=== PATIENT | female | born 1975 | race Caucasian/White ===

== ENCOUNTER 2017-11-21 13:57 | Outpatient (CLI) | payer MEDICARE, MEDICAID ==
[~2017-11-21] VITALS: Ht 157.5 cm; Wt 58.5 kg
[~2017-11-21 13:57] MED LIST changes: -BUPR1FIL3 SL; -CETI10TA17 PO; -CREONC PO; -D-ME118S41 PO; -DICY20TA10 PO; -FLUT16SP22 NS; -FLUT1AER IH; -FURO20TA4 PO; -LISI1TAB8 PO; -ONDA4TAB11 PO; -PANT40TA3 PO; -POLY17PO6 PO; -POTA-51 PO; -PROM25TA14 PO; -RANI150T90 PO; -RT-ALBUINH IH; -VARE0.5T PO; -ZOLP10TA5 PO
[2017-11-21 14:03] VITALS: BP 114/75
[2017-11-21] MEDS ORDERED: FLUT16SP22 NS (15:24)
[2017-11-21] MEDS ORDERED: PROM25TA14 PO (15:24)
[2017-11-21] MEDS ORDERED: PANT40TA3 PO (15:24)
[2017-11-21] MEDS ORDERED: FLUT1AER IH (15:24)
[2017-11-21] MEDS ORDERED: DICY20TA10 PO (15:24)
[2017-11-21] MEDS ORDERED: AMIT50TA3 PO (15:24)
[2017-11-21] MEDS ORDERED: FURO20TA4 PO (15:24)
[2017-11-21] MEDS ORDERED: POTA-51 PO (15:24)
[2017-11-21] MEDS ORDERED: ONDA4TAB11 PO (15:24)
[2017-11-21] MEDS ORDERED: LISI1TAB8 PO (15:24)
[2017-11-21] MEDS ORDERED: POLY17PO6 PO (15:24)
[2017-11-21] MEDS ORDERED: BUPR1FIL3 SL (15:24)
[2017-11-21] MEDS ORDERED: CETI10TA17 PO (15:24)
[2017-11-21] MEDS ORDERED: CREONC PO (15:24)
[2017-11-21] MEDS ORDERED: RT-ALBUINH IH (15:24)
[2017-11-21] MEDS ORDERED: RANI150T90 PO (15:24)
[2017-11-21] MEDS ORDERED: ZOLP10TA5 PO (15:24)
[2017-11-22] MEDS ORDERED: VARE0.5T PO (08:48)
[2017-11-22] MEDS ORDERED: D-ME118S41 PO (08:48)
== END 2017-11-21 14:20 | disposition home or self-care (01) ==
LOC: PREOP 13:57
PROVIDERS: ATTEND Obstetrics & Gynecology
DX: Z01.818 Encounter for other preprocedural examination (principal); Z11.2 Encounter for screening for other bacterial diseases; N80.9 Endometriosis, unspecified; N93.8 Other specified abnormal uterine and vaginal bleeding; R10.2 Pelvic and perineal pain
CPT/HCPCS: 87081

== ENCOUNTER → 2017-11-21 | Outpatient (CLI) | payer MEDICARE, MEDICAID ==
[~2017-11-21] MED LIST: ADDR10T; ALBU17AE23; ALBU17AE3; ALBU17AE3 IH; ALPR.25T; ALPR.5T; AMIT50TA3 PO; BUPR1FIL3 SL; CETI10TA17 PO; CPRH4T; CREON PO; CREONC PO; D-ME118S41 PO; DICY10CA26; DICY20TA10 PO; DICY20TA57; FLUT16SP22 NS; FLUT1AER IH; FNT100TD TD; FNT75TD TD; FURO20TA4 PO; HYDR-34 PO; HYDR-3720; HYDR-707; HYDR1TAB PO; LIPA1CAP2; LISI1TAB8 PO; LORA0.5T PO; METO-354; METO10TA3; MORP100C15 PO; MTC10T; NAPR-247; NF-AMPE5T; OMEP20CA6 PO; ONDA4TAB11 PO; ONDA8TAB6 PO; OXC5T PO; OXYC-272 PO; PANT40TA3 PO; PNCRC PO; POLY17PO6 PO; POTA-51 PO; POTA10CA43 PO; PRM25T; PROM12.53; PROM12.59 PO; PROM25TA14 PO; RANI150T90 PO; REGLAN; RT-ALBUINH IH; TEGA6TAB; TRAZONE; VARE0.5T PO; ZOLP10TA5 PO
--- NOTE | 2017-11-22 14:23 | Diagnostic Imaging Report ---
EXAMINATION: Digital mammogram bilateral screening. INDICATION: Screening. This is the patient's baseline study. At this time, there are no current complaints. The current study was also evaluated with a Computer Aided Detection (CAD) system. FINDINGS: The fibroglandular tissue in both breasts is heterogeneously dense. This does limit the sensitivity of this exam. On the MLO view of the left breast, there is an area of slightly increased density in the superior aspect of the breast. There is no corresponding abnormality seen on the craniocaudad view, and the tomographic images of this area in the MLO projection suggest that the density in question is secondary to fibroglandular tissue. There is no primary or secondary sign of malignancy noted. IMPRESSION: 1. There is no evidence of malignancy. 2. The patient should have her annual bilateral screening mammogram on schedule in October of 2018. ACR BI-RADS Category 1: Negative. Result letter will be mailed to the patient. Note: At least 10% of breast cancer is not imaged by mammography. Dictated on workstation # [id number]
== END ==
LOC: RAD 14:30
PROVIDERS: ATTEND Obstetrics & Gynecology
DX: Z12.31 Encounter for screening mammogram for malignant neoplasm of breast (principal)
CPT/HCPCS: 77067

== ENCOUNTER 2017-11-25 10:53 | Day surgery (SDC) | payer MEDICARE, MEDICAID ==
[~2017-11-25] VITALS: Ht 157.5 cm; Wt 58.5 kg
[2017-11-25] VITALS (7 sets, daily range): BP systolic 105–152; BP diastolic 80–97
[~2017-11-25 10:53] MED LIST changes: +BUPR1FIL3 SL; +CETI10TA17 PO; +CREONC PO; +D-ME118S41 PO; +DICY20TA10 PO; +FLUT16SP22 NS; +FLUT1AER IH; +FURO20TA4 PO; +LISI1TAB8 PO; +ONDA4TAB11 PO; +PANT40TA3 PO; +POLY17PO6 PO; +POTA-51 PO; +PROM25TA14 PO; +RANI150T90 PO; +RT-ALBUINH IH; +VARE0.5T PO; +ZOLP10TA5 PO
--- OUTSIDE RECORDS SUMMARY | 2017-11-25 11:08 | XMS REPORT | Continuity of Care Document ---
Author Author [facility] Organization [facility] Address Unknown Phone Unavailable Allergies Active Description Code Type Severity Reaction Onset Reported/Identified Relationship to Patient Clinical Status Yes NO KNOWN DRUG ALLERGIES NO KNOWN DRUG ALLERG UNKNOWN Yes NO KNOWN DRUG ALLERGIES UNKNOWN NO KNOWN DRUG ALLERG Yes NKANo Known Allergies NKA Miscellaneous Allergy Unknown N/A 11/11/2005 Yes No Known Drug Allergies [id number] Drug Allergy Unknown N/A 03/24/2008 Yes MS Contin Drug Allergy N/A N/A 05/25/2010 Medications Medication Packaging Start Date Stop Date Route Dosage Sig LACTATED RINGERS 1000CC IV BAG INJ 0 ml 09/13/2016 09/20/2016 CONTINUOUSEVERY 0 Hour CEFAZOLIN VIAL INJ 1 GM (ANCEF) GM 09/13/2016 09/13/2016 ONCE&0830 IPRATROPIUM/ALBUTEROL INH SOLN (DUO-NEB INH SOLN) MLS 02/01/2017 02/01/2017 ONCE&1842 POTASSIUM CHLORIDE TAB 10 MEQ (K-DUR) MEQ 02/01/2017 02/01/2017 ONCE&1931 METHYLPREDNISOLONE VIAL INJ 125 MG/2CC (SOLU-MEDROL VIAL) MG 02/01/2017 02/01/2017 ONCE&1937 Problems Date Dx Coded Attending Type Code Diagnosis Diagnosed By 03/19/2008 493.90 ASTHMA UNSPECIFIED 03/22/2008 493.92 ASTHMA (ACUTE ) EXACERBATION 03/24/2009 466.0 ACUTE BRONCHITIS 03/31/2009 786.2 cough 06/27/2009 789.00 abdominal pain 08/03/2009 276.50 VOLUME DEPLETION, UNSPECIFIED 12/27/2009 577.0 ACUTE PANCREATITIS 01/20/2010 577.1 CHRONIC PANCREATITIS 09/13/2016 LEILA CARL 354.0 CARPAL TUNNEL SYNDROME 09/13/2016 LEILA CARL 727.05 OTHER TENOSYNOVITIS OR HAND AND WRIST 09/13/2016 LEILA CARL G56.01 CARPAL TUNNEL SYNDROME, RIGHT UPPER LIMB 09/13/2016 LEILA CARL W M65.9 SYNOVITIS AND TENOSYNOVITIS, UNSPECIFIED 02/01/2017 Sal Krishna 493.92 ASTHMA, UNSPECIFIED WITH (ACUTE) EXACERBATION 02/01/2017 Sal Krishna J45.901 UNSPECIFIED ASTHMA WITH (ACUTE) EXACERBATION 10/31/2017 Bailee Arenas A 620.2 OTHER AND UNSPECIFIED OVARIAN CYST 10/31/2017 Bailee Arenas W 789.03 ABDOMINAL PAIN, RIGHT LOWER QUADRANT 10/31/2017 Bailee Arenas A N83.201 UNSPECIFIED OVARIAN CYST, RIGHT SIDE 10/31/2017 Bailee Arenas R10.31 RIGHT LOWER QUADRANT PAIN 11/21/2017 CAROLE ESCOBAR, EDITH Leggett Ot Z12.31 ENCNTR SCREEN MAMMOGRAM FOR MALIGNANT NE 11/22/2017 EDITH LAM MD, Ot Z12.31 ENCNTR SCREEN MAMMOGRAM FOR MALIGNANT NE 11/22/2017 EDITH LAM MD, Ot Z12.31 ENCNTR SCREEN MAMMOGRAM FOR MALIGNANT NE Procedures There is no data. Results Test Result Range Comprehensive Metabolic Panel - 09/06/16 12:57 Albumin 3.9 g/dL 3.6-5.1 ALP 46 U/L 35-130 ALT 47 U/L 6-45 Anion Gap 14 6-14 AST 40 U/L 2-40 BUN 5 mg/dL 5-25 Calcium 9.0 mg/dL 8.3-10.4 Chloride 106 mmol/L 95-114 CO2 23 mEq/L 22-33 Creat 0.75 mg/dL 0.50-1.50 eGFR 85 mL/min/1.73m2 >59 Globulin 3.0 g/dL 2.3-3.5 Glucose 117 mg/dL 70-110 Osmo 286 280-295 Potassium 3.6 mmol/L 3.5-5.3 Sodium 139 mmol/L 134-148 TBil 0.3 mg/dL 0.2-1.2 TP 6.9 g/dL 6.0-8.3 MRSA Screen - 09/06/16 12:57 FINAL CULTURE RESULTS MRSA Negative Nasal Culture MEDIA PLATED Setup at 13:51 on 09/06/2016 Test-Urine - 09/13/16 07:47 Preg Test-U Negative Negative Comprehensive Metabolic Panel - 02/01/17 18:42 Albumin 4.2 g/dL 3.6-5.1 ALP 76 U/L 35-130 ALT 28 U/L 6-45 Anion Gap 15 6-14 AST 22 U/L 2-40 BUN 9 mg/dL 5-25 Calcium 9.1 mg/dL 8.3-10.4 Chloride 101 mmol/L 95-114 CO2 25 mEq/L 22-33 Creat 1.11 mg/dL 0.50-1.50 eGFR 54 mL/min/1.73m2 >59 Globulin 3.2 g/dL 2.3-3.5 Glucose 96 mg/dL 70-110 Osmo 284 280-295 Potassium 3.1 mmol/L 3.5-5.3 Sodium 138 mmol/L 134-148 TBil 0.5 mg/dL 0.2-1.2 TP 7.4 g/dL 6.0-8.3 Comprehensive Metabolic Panel - 10/31/17 11:01 Albumin 4.0 g/dL 3.6-5.1 ALP 78 U/L 35-130 ALT 32 U/L 6-45 Anion Gap 15 6-14 AST 22 U/L 2-40 BUN 7 mg/dL 5-25 Calcium 9.2 mg/dL 8.3-10.4 Chloride 103 mmol/L 95-114 CO2 21 mEq/L 22-33 Creat 0.68 mg/dL 0.50-1.50 eGFR 95 mL/min/1.73m2 >59 Globulin 3.1 g/dL 2.3-3.5 Glucose 110 mg/dL 70-110 Osmo 280 280-295 Potassium 3.3 mmol/L 3.5-5.3 Sodium 136 mmol/L 134-148 TBil 0.5 mg/dL 0.2-1.2 TP 7.1 g/dL 6.0-8.3 Urinalysis - 10/31/17 11:01 Icotest N/A Negative Urine Volume Urine Volume Sufficient (10mL) Urine Yeast No Yeast present Urine-Appearance Clear Clear Urine-Bacteria Trace Urine-Bilirubin Negative Negative Urine-Blood 1+ Negative Urine-Color Yellow Colorless-Lt. Yellow Urine-Epithelial Cells 0-5/HPF Urine-Glucose Negative Negative Urine-Ketones Negative Negative Urine-Leukocytes Negative Negative Urine-Nitrite Negative Negative Urine-Other Urine Saved if Culture Needed (48hrs from time of collection) Urine-pH 5.0 5-8.5 Urine-Protein Negative Negative Urine-RBC 2-5/HPF Urine-Specific [place] 1.010 1.000-1.030 Urine-WBC Negative Urobilinogen 0.2 E.U./dL 0.2-1.0 Mycoplasma - 10/31/17 11:14 Mycoplasma Negative Negative Methicillin resistant Staphylococcus aureus (MRSA) screening culture - 14:14 Methicillin resistant Staphylococcus aureus (MRSA) screening culture NEG NRG Encounters ACCT No. Visit Date/Time Discharge Status Pt. Type Provider Facility Loc./Unit Complaint [id number] 11/21/2017 14:30:00 11/21/2017 23:59:59 CLS Outpatient EDITH LAM MD [facility] RAD SCREENING [id number] 11/21/2017 13:57:00 11/21/2017 14:20:00 DIS Outpatient EDITH LAM MD [facility] PREOP DUB,CHRONIC PELVIC PAIN [id number] 03/26/2013 10:58:00 03/26/2013 11:32:00 DIS Emergency [id number] 11/25/2017 13:00:00 PEN Preadmit EDITH LAM MD [facility] DUB,CHRONIC PELVIC PAIN, ENDOMETRIOSIS [id number] 10/31/2017 10:56:00 Document Registration [id number] 10/31/2017 10:56:00 10/31/2017 12:50:00 [id number] 02/01/2017 18:01:00 02/01/2017 19:48:00 [id number] 09/13/2016 00:00:00 09/13/2016 09:47:00 DIS Outpatient LEILA CARL [id number] 09/06/2016 12:28:00 09/06/2016 23:59:00 DIS Outpatient LEILA CARL [id number] 09/13/2016 07:36:44 Document Registration [id number] 08/27/2012 07:57:00 Document Registration [id number] 07/03/2017 13:00:00 07/03/2017 23:59:59 CLS Outpatient CARLOS GALVAN APRN [facility]
[2017-11-25] MEDS ORDERED: CATHETER FLUSH 10 ML SYR IV PRN (11:30)
[2017-11-25] MEDS ORDERED: ceFAZolin 1 GM/NS 100 ML IVPB IV ONE ×2 (11:30)
[2017-11-25] MEDS ORDERED: MIDAZOLAM 2 MG/2 ML (VERSED) VIAL IV ONE (11:30)
[2017-11-25] MEDS ORDERED: ROCURONIUM 10 MG/ML 5 ML SYRINGE IV ONE (11:32)
[2017-11-25] MEDS ORDERED: proPOfol 200 MG/20 ML (DIPRIVAN) VIAL IV ONE (11:32)
[2017-11-25] MEDS ORDERED: SEVOFLURANE (ULTANE) 15 ML INHAL SOLN ONE ×4 (11:32→13:40)
[2017-11-25] MEDS ORDERED: LIDOCAINE PF 2% 5 ML (XYLOCAINE) VIAL ONE (11:32)
[2017-11-25] MEDS ORDERED: LACTATED RINGERS 1,000 ML IV ONE (11:32)
[2017-11-25] MEDS ORDERED: DEXAMETHASONE 10 MG/ML (DECADRON) 1 ML VIAL ONE (11:32)
[2017-11-25] MEDS ORDERED: ONDANSETRON 4 MG/2 ML (SDV) Z0FRAN ONE (11:32)
[2017-11-25] MEDS ORDERED: MIDAZOLAM 2 MG/2 ML (VERSED) VIAL ONE (11:32)
[2017-11-25] MEDS ORDERED: fentaNYL INJECTION 100 MCG/2 ML AMP ONE (11:32)
[2017-11-25] MEDS: LACTATED RINGERS 1,000 ML IV PRN ×2 (11:43→14:02)
[2017-11-25] MEDS ORDERED: ceFAZolin INJECTION 1,000 MG in NS (IVPB) 100 ML IV ONE (11:45)
[2017-11-25] MEDS ORDERED: BUP/EPI 0.5% 1:200,000 (SENSORCAINE) 30 ML VIAL ONE (11:46)
--- NOTE | 2017-11-25 12:06 | Progress Note-Pre Operative ---
Pre-Operative Progress Note H&P Reviewed The H&P was reviewed, patient examined and no changes noted. Date Seen by Provider: Nov 25, 2017 Time Seen by Provider: 12:06 Date H&P Reviewed: Nov 25, 2017 Time H&P Reviewed: 12:06 Pre-Operative Diagnosis: CPP/DUB/endometriosis EDITH LAM MD Nov 25, 2017 12:06 pm
--- NOTE | 2017-11-25 12:07 | Progress Note-Post Operative ---
Post-Operative Progess Note Surgeon (s)/Account Manager B2B (s) Surgeon EDITH LAM MD Account Manager B2B: Yen Decker Pre-Operative Diagnosis CPP/DUB/endometriosis Post-Operative Diagnosis Same with pathology pending Procedure & Operative Findings Date of Procedure 11/25/17 Procedure Performed/Findings TL H with BSO , adhesiolysis, destruction of endometriosis, laparoscopic appendectomy Anesthesia Type GETA Estimated Blood Loss Estimated blood loss (mL): Minimal Specimens/Packing Specimens Removed Uterus tubes and ovaries, and appendix Packing: None EDITH LAM MD Nov 25, 2017 12:07
[2017-11-25] MEDS ORDERED: DOCU100C37 PO (12:12)
[2017-11-25] MEDS ORDERED: ESTR1TAB24 PO (12:12)
[2017-11-25] MEDS ORDERED: OXYC-465 PO (12:12)
[2017-11-25] MEDS ORDERED: IBUP-1780 PO (12:12)
--- NOTE | 2017-11-25 12:14 | Discharge Instructions ---
Discharge Instructions Discharge Medications New, Converted or Re-Newed RX: RX on Chart Patient Instructions Patient Instructions: As directed Return to The Hospital For: As directed Activity & Diet Discharge Diet: No Restrictions Activity as Tolerated: No Orders-Post D/C & Referrals Follow Up Appt: Return to clinic on , November 28, 2017 at 930 a.m. for staple removal Call to make follow up appt. for patient in 4 weeks. Activity: Rest for 24 hours, than as tolerated. Wound Care: May remove Band-Aid tomorrow. Replace as desired. Keep incisions clean and dry. Wash daily with soap and water. Please call in RX to patient pharmacy. Diet: As tolerated-Clear Liquids only if nauseated. Tomorrow, may shower or tub bathe as desired. No driving for 24 hours, no alcoholic beverages for 24 hours, and nothing per vagina (no tampons, douching, or intercourse) for 8 weeks. Patient to return to the clinic as soon as possible for: Temperature greater than 101F, Severe Pain, Foul discharge from incision or vagina, Excessive Bleeding (more than a period). EDITH LAM MD Nov 25, 2017 12:14 pm
[2017-11-25] MEDS ORDERED: ESTROGENS CONJ IV 25 MG/5 ML (PREMARIN) VIAL IVP ONE (12:15)
[2017-11-25] MEDS ORDERED: WATER (STERILE) FOR INJ 10 ML BTL INJ ONE (12:15)
[2017-11-25] MEDS ORDERED: ONDANSETRON 4 MG/2 ML (SDV) Z0FRAN IVP PRN ×2 (12:15→14:00)
[2017-11-25] MEDS ORDERED: GLYCOPYRROLATE 0.2 MG/ML (ROBINUL) 2 ML VIAL ONE (13:33)
[2017-11-25] MEDS ORDERED: NEOSTIGMINE 1 MG/ML 5 ML SYRINGE ONE (13:33)
[2017-11-25] MEDS ORDERED: morphine INJ 10 MG/ML 1ML (SYR OR VIAL) ONE (13:43)
[2017-11-25] MEDS: KETOROLAC 30 MG/ML VIAL IVP SCH ×2 (13:58→20:48)
[2017-11-25] MEDS: morphine INJ 10 MG/ML 1ML (SYR OR VIAL) IVP PRN ×2 (13:59→14:05)
[2017-11-25] MEDS ORDERED: PROMETHAZINE INJ 25 MG/ML (PHENERGAN) AMP IVP PRN (14:00)
[2017-11-25] MEDS ORDERED: MEPERIDINE (DEMEROL) INJ 50 MG/ML IVP PRN (14:00)
[2017-11-25] MEDS: HYDROmorphone (DILAUDID) 2 MG/ML VIAL IVP PRN ×2 (14:14→14:24)
[2017-11-25] MEDS: PROMETHAZINE INJ 25 MG/ML (PHENERGAN) AMP IM PRN ×2 (15:11→19:36)
[2017-11-25] MEDS: MEPERIDINE (DEMEROL) INJ 100 MG/ML IM PRN ×2 (15:12→19:36)
[2017-11-25] MEDS: oxyCODONE/APAP 10/325MG (PERCOCET 10) TABLET PO PRN ×2 (17:29→21:51)
[2017-11-25] MEDS: D5 LR IV SOLUTION 1,000 ML IV SCH (17:30)
[2017-11-25] MEDS ORDERED: ZOLPIDEM 5 MG (AMBIEN) TAB PO SCH (21:00)
--- NOTE | 2017-11-25 21:21 | OPERATIVE REPORT ---
DATE OF SERVICE: 11/25/2017 PREOPERATIVE DIAGNOSES: Chronic pelvic pain, dysfunctional bleeding and history of endometriosis. POSTOPERATIVE DIAGNOSES: Chronic pelvic pain, dysfunctional bleeding and history of endometriosis with recurrent endometriosis and with abnormal appendix. OPERATIVE PROCEDURE: Total laparoscopic hysterectomy with bilateral salpingo-oophorectomy, adhesiolysis, destruction of endometriosis implants and laparoscopic appendectomy. OPERATIVE DESCRIPTION: With the patient in the supine position under satisfactory general anesthesia, she was repositioned in dorsal lithotomy position in the [facility] and prepped and draped in the usual fashion for vaginal and abdominal surgery. Carson catheter was placed in urinary bladder. Weighted speculum placed in posterior fornix of vagina, cervix exposed and grasped anteriorly with single tooth tenaculum. Uterus sounded to 11 cm with uterine sound. Cervix was then serially dilated with Jose dilators to accommodate a Sania II manipulator, which was placed using a 6 mm x 8 cm uterine probe and a 25 mm colpotomy ring. Sutures of #1 Vicryl placed at 3 and 9 o'clock position of the cervix to affix the cervix to the manipulator. The patient was brought down into low dorsal lithotomy position. A 12 mm incision was made 3.5 cm superior to the umbilicus, 8 mm incisions were made 8.5 to 9 cm lateral to the umbilicus on each side at the level of the umbilicus. All three incision sites were infiltrated with 0.5% Marcaine with epinephrine prior to incision. A Veress needle was placed through the midline incision, correct placement confirmed with a water drop test. The abdomen was insufflated with 2.4 liters of carbon dioxide. The Veress needle was removed. A 12 mm Optiview laparoscopic port placed and the laparoscope introduced. The abdominal wall was transilluminated and 8 mm ports were placed through the lateral incisions. The patient was brought into Trendelenburg allowing the bowel to spill up out of the pelvis. There were some adhesions on the left pelvic brim that kept the bowel adherent over the IP ligament and the proximal portion of the tube and ovary. At this point, the operative instruments were placed after positioning the manipulator and I retired to the console for the procedure. The tubes and ovaries were examined. The patient had had tubal sterilization remotely that was evidenced by the Falope rings in place. There was endometriosis in both ovarian fossae more so on the left than on the right and minimal in the cul-de-sac, there was none in the anterior cul-de-sac. The ureters were seen to peristalse, both were relatively close to the IP ligament but yielded adequate clearance for safe performance of the procedure. The appendix was identified, it was adherent to the pelvic brim. It had several nodular area consistent with potentially endometriosis, or some degree of inflammation or scar tissue. Decision made to go ahead with appendectomy concurrent with the balance of the procedure. The procedure was initiated by picking up the tube and ovary on the right, placed in the vessel sealer across the IP ligament. That ligament was then clamped, cauterized and divided in stepwise fashion using the vessel sealer over to the round ligament, across the round ligament, across the broad ligaments to the side of the uterus and down the broad ligament to the cardinal ligament and the cardinal ligament was treated in the same manner. The same procedure was performed on the left after taken down the adhesions allowing the sigmoid to fall away from the left IP ligament. This allowed for removal of both tubes and ovaries eventually with the uterus. The anterior lower uterine segment peritoneum was now that exposed and using a monopolar shear, the peritoneum was divided allowing for the bladder to be dissected down off the anterior lower uterine segment off of the cervix. A colpotomy incision was made at the 12 o'clock position over the colpotomy ring. That incision was continued circumferentially until the entire colpotomy ring was exposed allowing the uterus with tubes and ovaries still attached to be extracted through the vagina. The vaginal cuff was closed with two V-Loc barbed sutures starting first on the right angle and including the terminus of the uterine vessels in the first stitch to ensure hemostasis and then the closure was made to almost the midpoint of the vaginal cuff. Same procedure was performed on the left ring and the suture closure including the terminus of the large vessels and the cardinal ligament on the left and then after closing the balance of the vaginal cuff, the peritoneum was brought back down onto the vaginal cuff within the last couple of stitches. The pelvis was irrigated. There were several endometrial implants that had been noted prior. Those were not removed with the uterus and the tubes and ovaries were now touched with electrocautery to destroy them. This was primarily in the ovarian fossae and up on the left pelvic brim. The attention was now turned to the appendix. The appendix was grasped and elevated. The laparoscopic portion using the da Patti equipment was continued at this point to divide the mesoappendix close to the base of the appendix and then divide the mesoappendix completely, and then with the appendix free and ready to be removed, the instrumentation was changed to conventional laparoscopy instruments with 5 mm camera through the left port, a grasper through the right port and a stapler through the midline port. The appendix was grasped, elevated and the Endo DARYA was placed across the base of the appendix and fired. The stump of the appendix was copiously irrigated. The appendix itself was extracted through the umbilical port in an Endobag. The stump of the appendix was treated with several drops of Betadine solution. The pelvis was irrigated final time and examined for hemostasis. With hemostasis complete throughout both ureters seemed to peristalse before, during and after the procedure and again at this point, the procedure was terminated. The operative instruments removed under direct vision as were the ports. The abdomen was evacuated of insufflating gas in the process. The skin incisions were stapled after closing the fascia at the supraumbilical 12 mm incision with [id number] suture of 2-0 Vicryl. The speculum was replaced in the vagina. The vaginal cuff was examined for hemostasis and complete closure, which was satisfactory. Sponge and needle counts were correct at the end of procedure. Estimated blood loss for procedure was minimal. The patient tolerated the procedure well and was uneventfully awakened from general anesthesia and transferred to recovery in stable condition. Job ID: [id number] DocumentID: [id number] Dictated Date: 11/25/2017 13:45:53 Shipping Point Inspector Date: 11/25/2017 21:20:41 Dictated By: EDITH LAM MD [facility]
[2017-11-25] MEDS: LIPASE/AMYLASE/PROTEASE (PANCRELIPASE) 5,000 UNITS CAP PO SCH (21:46)
[2017-11-26 00:05] VITALS: BP 106/77
[2017-11-26] MEDS: MEPERIDINE (DEMEROL) INJ 100 MG/ML IM PRN (00:57)
[2017-11-26] MEDS: PROMETHAZINE INJ 25 MG/ML (PHENERGAN) AMP IM PRN (00:57)
[2017-11-26] MEDS: D5 LR IV SOLUTION 1,000 ML IV SCH (01:36)
[2017-11-26] MEDS: KETOROLAC 30 MG/ML VIAL IVP SCH ×2 (02:45→07:47)
[2017-11-26 03:53] VITALS: BP 108/73
[2017-11-26] MEDS: oxyCODONE/APAP 10/325MG (PERCOCET 10) TABLET PO PRN ×2 (03:56→09:45)
--- NOTE | 2017-11-26 07:02 | Anesthesia-General Post-Op ---
General Patient Condition Mental Status/LOC: Same as Preop Cardiovascular: Satisfactory Nausea/Vomiting: Absent Respiratory: Satisfactory Pain: Controlled Complications: Absent Post Op Complications Complications None Follow Up Care/Instructions Patient Instructions None needed. Anesthesia/Patient Condition Patient Condition Patient is doing well, no complaints, stable vital signs, no apparent adverse anesthesia problems. No complications reported per nursing. ELVA BUTTERFIELD CRNA Nov 26, 2017 07:02
[2017-11-26 08:00] VITALS: BP 108/78
--- NOTE | 2017-11-26 08:11 | Progress Note-Standard ---
Standard Progress Note Progress Notes/Assess & Plan Date Seen by Provider: Nov 26, 2017 Time Seen by Provider: 08:10 Progress/Assessment & Plan This patient is without complaint. She is ambulating, voiding, tolerating oral intake, and has adequate pain control. She feels ready for discharge home. She denies headache, denies shortness of breath, denies nausea vomiting, and denies chest pain. Vital Signs Date Time Temp Pulse Resp B/P (MAP) Pulse Ox O2 Delivery O2 Flow Rate FiO2 11/26/17 03:53 98.7 106 18 108/73 (85) 98 Room Air 11/26/17 00:05 99.3 103 18 106/77 (87) 98 Room Air 11/25/17 20:48 98.5 89 18 105/80 (88) 96 Room Air 11/25/17 17:15 98.0 81 18 142/86 (104) 97 Room Air 11/25/17 16:30 99.4 81 18 134/84 (101) 98 Room Air 11/25/17 16:00 84 18 152/97 (115) 99 Room Air 11/25/17 15:35 82 18 138/89 (105) 99 Room Air 11/25/17 14:55 98.9 73 18 144/92 (109) 100 Room Air 11/25/17 12:14 99.0 99 22 120/88 (99) 98 Room Air I & O 11/26/17 07:00 Intake Total 3700 ml Output Total 810 ml Balance 2890 ml Vital signs are stable. Patient afebrile. Abdomen is benign. The surgical incisions clean dry and intact. Extreme show no clubbing cyanosis. There is no Homans sign. Assessment and plan postoperative day number 1 doing well. Plan is for discharge home with follow-up in clinic Final Diagnosis Pelvic pain/endometriosis EDITH LAM MD Nov 26, 2017 8:11 am
[2017-11-26] MEDS: LIPASE/AMYLASE/PROTEASE (PANCRELIPASE) 5,000 UNITS CAP PO SCH (08:22)
[2017-11-26] MEDS ORDERED: DOCUSATE SODIUM 100 MG (COLACE) CAP PO SCH (09:00)
[2017-11-26] MEDS ORDERED: ESTRADIOL 1 MG TAB (ESTRACE) PO SCH (09:00)
[2017-11-26 11:25] VITALS: BP 108/78
[2017-11-26] MEDS ORDERED: IBUPROFEN 800 MG (MOTRIN) TAB PO SCH (18:00)
== END 2017-11-26 10:25 | disposition home or self-care (01) ==
LOC: SDC 10:53 → WS 14:47 → SDC 11-26 10:25
PROVIDERS: ATTEND Obstetrics & Gynecology
DX: N83.12 Corpus luteum cyst of left ovary (principal); N94.89 Other specified conditions associated with female genital organs and menstrual cycle; N83.8 Other noninflammatory disorders of ovary, fallopian tube and broad ligament; K38.8 Other specified diseases of appendix; I10 Essential (primary) hypertension; J45.909 Unspecified asthma, uncomplicated; F90.9 Attention-deficit hyperactivity disorder, unspecified type; F17.210 Nicotine dependence, cigarettes, uncomplicated; K21.9 Gastro-esophageal reflux disease without esophagitis; Z79.899 Other long term (current) drug therapy
CPT/HCPCS: 84703; 86850; 86900; 86901; 88304; 88307; 94664

== ENCOUNTER → 2018-04-26 | Outpatient (CLI) | payer MEDICARE, MEDICAID ==
[~2018-04-26] MED LIST changes: +DOCU100C37 PO; +ESTR1TAB24 PO; +IBUP-1780 PO; +OXYC-465 PO
== END ==
LOC: LAB 12:03
PROVIDERS: ATTEND Nurse Practitioner Family
DX: M79.1 Myalgia (principal); E53.9 Vitamin B deficiency, unspecified
CPT/HCPCS: 36415; 85652; 86038; 86141; 86200; 86430; 99211

== ENCOUNTER 2020-05-18 15:33 | Emergency (ER) | payer MEDICAID, MEDICARE ==
[~2020-05-18] VITALS: Ht 157.4 cm; Wt 68.1 kg
[~2020-05-18 15:33] MED LIST changes: +LISI1TAB46 PO; -LISI1TAB8 PO; -OXYC-465 PO; +OXYC-556 PO; -PANT40TA3 PO; +PANT40TA52 PO
--- NOTE | 2020-05-18 16:18 | ED Lower Extremity ---
General Stated Complaint: RIGHT HIP PAIN Source: patient Exam Limitations: no limitations History of Present Illness Date Seen by Provider: May 18, 2020 Time Seen by Provider: 16:16 Initial Comments To ER with reports of right hip pain for about a year, became worse in February when she fell. Decided today that she should have some x-rays done of the. On Subox one for chronic pain management. Has not mentioned this hip pain to her primary care provider. Onset: other Severity: moderate Pain/Injury Location: right hip Method of Injury: fell Modifying Factors: Worse With Movement Allergies and Home Medications Allergies Coded Allergies: NKANo Known Allergies (Verified Allergy, Unknown, 11/11/05) Home Medications Albuterol Sulfate 1 Puff Puff, 2 PUFF IH Q4H PRN for WHEEZING, (Reported) 1 PUFF = 90 MCG Amitriptyline HCl 50 Mg Tablet, 75 MG PO HS, (Reported) take 1 1/2 of 50mg tab for 75mg total Buprenorphine HCl/Naloxone HCl 1 Each Film, 1 EACH SL BID, (Reported) Cetirizine HCl 10 Mg Tablet, 10 MG PO DAILY, (Reported) D-Methorphan Hb/P-Epd HCl/Bpm 118 Ml Syrup, 5 ML PO HS, (Reported) Dicyclomine HCl 20 Mg Tablet, 20 MG PO ACHS, (Reported) Docusate Sodium 100 Mg Capsule, 100 MG PO BID Prescribed by: EDITH TADEO on 11/25/171211 Estradiol 1 Mg Tablet, 1 MG PO DAILY Prescribed by: EDITH TADEO on 11/25/17 121 Fluticasone Propionate 16 Gm [place].susp, 1 SPRAY NS DAILY, (Reported) Fluticasone/Vilanterol 1 Each Blst.w.dev, 1 EACH IH BID, (Reported) Furosemide 20 Mg Tablet, 20 MG PO BID, (Reported) Ibuprofen 800 Mg Tablet, 800 MG PO Q6HR Prescribed by: EDITH TADEO on 11/25/17 121 Lipase/Amylase/Protease 1 Ea Cap, 6,000 UNITS PO QID, (Reported) Lisinopril/Hydrochlorothiazide 1 Each Tablet, 1 TAB PO DAILY, (Reported) Ondansetron 4 Mg Tab.rapdis, 4 MG PO BID, (Reported) Oxycodone HCl/Acetaminophen 1 Each Tablet, 1-2 TAB PO Q4HR PRN for PAIN-MODERATE TO SEVERE Prescribed by: EDITH TADEO on 11/25/17 1212 Pantoprazole Sodium 40 Mg Tablet.dr, 40 MG PO DAILY, (Reported) Polyethylene Glycol 3350 17 Gm Powd.pack, 17 GM PO DAILY, (Reported) Potassium Chloride 20 Meq Tablet.er, 20 MEQ PO DAILY, (Reported) Promethazine HCl 25 Mg Tablet, 25 MG PO TID, (Reported) Ranitidine HCl 150 Mg Tablet, 150 MG PO BID, (Reported) Varenicline Tartrate 0.5 Mg Tablet, 0.5 MG PO DAILY, (Reported) Zolpidem Tartrate 10 Mg Tablet, 10 MG PO HS, (Reported) Patient Home Medication List Home Medication List Reviewed: Yes Review of Systems Constitutional: see HPI EENTM: see HPI Respiratory: no symptoms reported Cardiovascular: no symptoms reported Genitourinary: no symptoms reported Skin: no symptoms reported Psychiatric/Neurological: No Symptoms Reported Past Rlwerna-Zthkdg-Lzludz Hx Patient Social History Type Used: Cigarettes Recent Foreign Travel: No Contact w/Someone Who Travel: No Recent Hopitalizations: No Immunizations Up To Date Tetanus Booster (TDap): Unknown Date of Pneumonia Vaccine: Jun 19, 2011 Date of Influenza Vaccine: May 23, 2017 Seasonal Allergies Seasonal Allergies: Yes Past Medical History Tubal Ligation Asthma Hypertension Reproductive Disorders: Yes Female Reproductive Disorders: Endometriosis Sexually Transmitted Disease: No Gastroesophageal Reflux, Chronic Constipation, Pancreatitis, Chronic Diarrhea Arthritis Loss of Vision: Bilateral Hearing Impairment: Denies ADD/ADHD Physical Exam Vital Signs Vital Signs - First Documented 05/18/20 16:02 Temp 36.7 Pulse 98 Resp 18 B/P (MAP) 124/87 (99) Pulse Ox 97 O2 Delivery Room Air Capillary Refill : Height, Weight, BMI Height: 5'2.00" Weight: 129lbs. 0.0oz. 58.078040fz; 23.6 BMI Method:Stated General Appearance: WD/WN, no apparent distress, other (ambulatory without use of assistive device) HEENT: PERRL/EOMI, normal ENT inspection Neck: non-tender, full range of motion Respiratory: no respiratory distress, no accessory muscle use Hips: bilateral hip non-tender, bilateral hip normal inspection, bilateral hip normal range of motion Legs: bilateral leg non-tender, bilateral leg normal inspection, bilateral leg normal range of motion Knees: bilateral knee non-tender, bilateral knee normal inspection, bilateral knee normal range of motion Ankles: bilateral ankle non-tender, bilateral ankle normal inspection, lesley ateral ankle normal range of motion Feet: bilateral foot non-tender, bilateral foot normal inspection, bilateral foot normal range of motion Neurologic/Psychiatric: alert, normal mood/affect, oriented x 3 Skin: normal color, warm/dry Progress/Results/Core Measures Results/Orders My Orders Orders - CONCHA ROACH APRN Hip, Right, 2 Views (05/18/20 16:09) Cefdinir Capsule (Omnicef Capsule) (05/18/20 17:15) Vital Signs/I&O 05/18/20 16:02 Temp 36.7 Pulse 98 Resp 18 B/P (MAP) 124/87 (99) Pulse Ox 97 O2 Delivery Room Air Departure Impression Primary Impression: Right hip pain Disposition: 01 HOME, SELF-CARE Condition: Stable Departure-Patient Inst. Decision time for Depature: 17:08 Referrals: MISA JOHNS DO (PCP/Family) Primary Care Physician Patient Instructions: Hip Pain Add. Discharge Instructions: 1. Return to ER for any concerns 2. Follow-up with your doctor next week 3. Scripts Methylprednisolone (Methylprednisolone Dose Pack) 4 Mg Tab.ds.pk 4 MG PO UD for 6 Days, #21 PKG PER DOSE PACK INSTRUCTIONS Prov: CONCHA ROACH APRN 05/18/20 CONCHA ROACH APRN May 18, 2020 16:18
--- NOTE | 2020-05-18 16:55 | Diagnostic Imaging Report ---
INDICATION: Right hip pain. EXAMINATION: AP and oblique views of the right hip were obtained at 4:27 p.m. FINDINGS: No fracture or acute bony abnormality is seen. There is no significant joint space narrowing or lytic or blastic lesion. IMPRESSION: Negative right hip. Dictated by: Dictated on workstation # [id number]
[2020-05-18] MEDS ORDERED: METH4TAB10 PO (17:09)
[2020-05-18] MEDS ORDERED: CEFDINIR 300 MG (OMNICEF) CAP PO ONE (17:15)
[2020-05-18 17:16] VITALS: BP 124/87
== END 2020-05-18 17:15 | disposition home or self-care (01) ==
LOC: EDUNIT# 15:33 → ER 15:36
DX: M25.551 Pain in right hip (principal); I10 Essential (primary) hypertension; J45.909 Unspecified asthma, uncomplicated; K21.9 Gastro-esophageal reflux disease without esophagitis; K59.09 Other constipation; Z79.52 Long term (current) use of systemic steroids; Z79.51 Long term (current) use of inhaled steroids; W19.XXXA Unspecified fall, initial encounter
CPT/HCPCS: 73502

== ENCOUNTER 2021-10-10 19:25 | Inpatient (IN) | payer MEDICAID ==
[~2021-10-10] VITALS: Ht 157.5 cm; Wt 81.5 kg
[~2021-10-10 19:25] MED LIST changes: +DICY20TA PO; -DICY20TA10 PO; -FLUT16SP22 NS; +FLUT16SP22 NSEACH; +METH4TAB10 PO
[2021-10-10] MEDS ORDERED: LORazepam INJ 2 MG/ML (ATIVAN) VIAL IVP ONE (19:45)
[2021-10-10] MEDS ORDERED: ONDANSETRON 4 MG/2 ML (SDV) Z0FRAN IVP ONE (19:45)
--- NOTE | 2021-10-10 19:47 | ED General ---
General Stated Complaint: SOB,CP,CONGESTION,CHILLS,N/V,FEVER Source of Information: Patient Exam Limitations: No Limitations (CONCHA ROACH APRN) History of Present Illness Date Seen by Provider: Oct 10, 2021 Time Seen by Provider: 19:45 Initial Comments To ER with a 3-week history of productive cough, anxiety, congestion, nausea vomiting chills. She has had both COVID vaccines plus a booster. Severity: Moderate Associated Systoms: Fever/Chills, Nausea/Vomiting (CONCHA ROACH APRN) Allergies and Home Medications Allergies Coded Allergies: NKANo Known Allergies (Verified Allergy, Unknown, 11/11/05) Patient Home Medication List Home Medication List Reviewed: Yes (CONCHA ROACH APRN) Albuterol Sulfate (Ventolin Hfa) 1 Puff Puff, 2 PUFF IH Q4H PRN for SHORTNESS OF BREATH, (Reported) Entered as Reported by: SAULO ESTEVES on 11/21/171523 Last Action: Reviewed Atorvastatin Calcium (Atorvastatin Calcium) 40 Mg Tablet, 40 MG PO HS, (Reported) Entered as Reported by: MALIA PHILIPPE on 10/11/211624 Last Action: Reviewed Budesonide (Budesonide) 0.5 Mg/2 Ml Ampul.neb, 0.5 MG IH BID PRN for SHORTNESS OF BREATH, (Reported) Entered as Reported by: MALIA PHILIPPE on 10/11/211609 Last Action: Reviewed Buprenorphine HCl/Naloxone HCl (Suboxone 8 mg-2 mg Sl Film) 1 Each Film, 1 EACH SL BID, (Reported) Entered as Reported by: MALIA PHILIPPE on 10/11/211609 Last Action: Reviewed Celecoxib (Celebrex) 200 Mg Capsule, 200 MG PO BID, (Reported) Entered as Reported by: MALIA PHILIPPE on 10/11/211609 Last Action: Reviewed Cetirizine HCl (Cetirizine HCl) 10 Mg Tablet, 10 MG PO DAILY PRN for ALLERGY SYMPTOMS, (Reported) Entered as Reported by: SAULO ESTEVES on 11/21/171523 Last Action: Reviewed Cholecalciferol (Vitamin D3) (Vitamin D3) 50 Mcg Capsule, 50 MCG PO DAILY, (Reported) Entered as Reported by: MALIA PHILIPPE on 10/11/211609 Last Action: Reviewed Dicyclomine HCl (Dicyclomine HCl) 20 Mg Tablet, 20 MG PO ACHS, (Reported) Entered as Reported by: MALIA PHILIPPE on 10/11/211609 Last Action: Reviewed Duloxetine HCl (Duloxetine HCl) 60 Mg Capsule.dr, 60 MG PO DAILY, (Reported) Entered as Reported by: MALIA PHILIPPE on 10/11/211624 Last Action: Reviewed Estradiol (Estrace Tablet) 2 Mg Tablet, 2 MG PO DAILY, (Reported) Entered as Reported by: MALIA PHILIPPE on 10/11/211609 Last Action: Reviewed Fluticasone Propionate (Fluticasone Propionate) 16 Gm [place].susp, 1-2 SPRAY NSEACH DAILY PRN for CONGESTION, (Reported) Entered as Reported by: SAULO ESTEVES on 11/21/171523 Last Action: Reviewed Fluticasone/Vilanterol (Breo Ellipta 100-25 Mcg INH) 1 Each Blst.w.dev, 1 EACH IH DAILY, (Reported) Entered as Reported by: MALIA PHILIPPE on 10/11/211609 Last Action: Reviewed Furosemide (Furosemide) 40 Mg Tablet, 40 MG PO 0700,1300, (Reported) Entered as Reported by: MALIA PHILIPPE on 10/11/211609 Last Action: Reviewed Ibuprofen (Ibuprofen) 800 Mg Tablet, 800 MG PO Q8H PRN for PAIN-MILD, (Reported) Entered as Reported by: MALIA PHILIPPE on 10/11/211609 Last Action: Reviewed Lisinopril/Hydrochlorothiazide (Lisinopril-Hctz 20-12.5 mg Tab) 1 Each Tablet, 1 EACH PO DAILY, (Reported) Entered as Reported by: MALIA PHILIPPE on 10/11/211609 Last Action: Reviewed Metformin HCl (Metformin HCl) 500 Mg Tablet, 500 MG PO BID Prescribed by: CHERYLE SOOD on 10/12/21 1039 Methotrexate Sodium (Methotrexate) 2.5 Mg Tablet, 17.5 MG PO SUN, (Reported) Entered as Reported by: MALIA PHILIPPE on 10/11/211609 Last Action: Reviewed Methylphenidate HCl (Methylphenidate HCl) 10 Mg Tablet, 10 MG PO 0700,1300, (Reported) Entered as Reported by: MALIA PHILIPPE on 10/11/211609 Last Action: Reviewed Pantoprazole Sodium (Pantoprazole Sodium) 40 Mg Tablet.dr, 40 MG PO DAILY, (Reported) Entered as Reported by: SAULO ESTEVES on 11/21/171523 Last Action: Reviewed Polyethylene Glycol 3350 (Miralax) 17 Gm Powd.pack, 17 GM PO DAILY PRN for CONSTIPATION-2ND LINE, (Reported) Entered as Reported by: SAULO ESTEVES on 11/21/171523 Last Action: Reviewed Potassium Chloride (Potassium Chloride) 20 Meq Tablet.er, 20 MEQ PO DAILY, (Reported) Entered as Reported by: SAULO ESTEVES on 11/21/171523 Last Action: Reviewed Pregabalin (Pregabalin) 75 Mg Capsule, 75 MG PO TID, (Reported) Entered as Reported by: MALIA PHILIPPE on 10/11/211609 Last Action: Reviewed Zolpidem Tartrate (Ambien) 10 Mg Tablet, 10 MG PO HS, (Reported) Entered as Reported by: MALIA PHILIPPE on 10/11/211609 Last Action: Reviewed Discontinued Medications Amitriptyline HCl (Amitriptyline HCl) 50 Mg Tablet, 75 MG PO HS, (Reported) Discontinued Reason: Duplicate Order Entered as Reported by: SAULO ESTEVES on 11/21/171523 Last Action: Discontinued Buprenorphine HCl/Naloxone HCl (Suboxone 8 mg-2 mg Sl Film) 1 Each Film, 1 EACH SL BID, (Reported) Discontinued Reason: Duplicate Order Entered as Reported by: SAULO ESTEVES on 11/21/171523 Last Action: Discontinued D-Methorphan Hb/P-Epd HCl/Bpm (Gpnnaofpyt-Zufppwvokls-Xg Syr) 118 Ml Syrup, 5 ML PO HS, (Reported) Discontinued Reason: Duplicate Order Entered as Reported by: SAULO ESTEVES on 11/22/17 0848 Last Action: Discontinued Dicyclomine HCl (Dicyclomine HCl) 20 Mg Tablet, 20 MG PO ACHS, (Reported) Discontinued Reason: Duplicate Order Entered as Reported by: SAULO ESTEVES on 11/21/171523 Last Action: Discontinued Docusate Sodium (Docusate Sodium) 100 Mg Capsule, 100 MG PO BID Discontinued Reason: Duplicate Order Prescribed by: EDITH TADEO on 11/25/171211 Last Action: Discontinued Estradiol (Estradiol Tablet) 1 Mg Tablet, 1 MG PO DAILY Discontinued Reason: Duplicate Order Prescribed by: EDITH TADEO on 11/25/171211 Last Action: Discontinued Fluticasone/Vilanterol (Breo Ellipta 100-25 Mcg INH) 1 Each Blst.w.dev, 1 EACH IH BID, (Reported) Discontinued Reason: Duplicate Order Entered as Reported by: SAULO ESTEVES on 11/21/171523 Last Action: Discontinued Furosemide (Furosemide) 20 Mg Tablet, 20 MG PO BID, (Reported) Discontinued Reason: Prescription changed Entered as Reported by: SAULO ESTEVES on 11/21/171523 Ibuprofen (Ibuprofen) 800 Mg Tablet, 800 MG PO Q6HR Discontinued Reason: Duplicate Order Prescribed by: EDITH TADEO on 11/25/171211 Last Action: Discontinued Lipase/Amylase/Protease (Creon Dr 6,000 Units Capsule) 1 Ea Cap, 6,000 UNITS PO QID, (Reported) Discontinued Reason: Duplicate Order Entered as Reported by: SAULO ESTEVES on 11/21/171523 Last Action: Discontinued Lisinopril/Hydrochlorothiazide (Lisinopril-Hctz 20-12.5 mg Tab) 1 Each Tablet, 1 TAB PO DAILY, (Reported) Discontinued Reason: Duplicate Order Entered as Reported by: SAULO ESTEVES on 11/21/171523 Last Action: Discontinued Methylprednisolone (Methylprednisolone Dose Pack) 4 Mg Tab.ds.pk, 4 MG PO UD Discontinued Reason: Duplicate Order Prescribed by: CONCHA ROACH on 05/18/20 1709 Last Action: Discontinued Ondansetron (Ondansetron Odt) 4 Mg Tab.rapdis, 4 MG PO BID, (Reported) Discontinued Reason: Duplicate Order Entered as Reported by: SAULO ESTEVES on 11/21/171523 Last Action: Discontinued Oxycodone HCl/Acetaminophen (Oxycodone-Acetaminophen 10-325) 1 Each Tablet, 1-2 TAB PO Q4HR PRN for PAIN-MODERATE TO SEVERE Discontinued Reason: Duplicate Order Prescribed by: EDITH TADEO on 4/9/18 1212 Last Action: Discontinued Promethazine HCl (Promethazine Tablet) 25 Mg Tablet, 25 MG PO TID, (Reported) Discontinued Reason: Duplicate Order Entered as Reported by: SAULO ESTEVES on 11/21/171523 Last Action: Discontinued Ranitidine HCl (Acid Piano Regulator (RANITIDINE)) 150 Mg Tablet, 150 MG PO BID, (Reported) Discontinued Reason: Duplicate Order Entered as Reported by: SAULO ESTEVES on 11/21/171523 Last Action: Discontinued Varenicline Tartrate (Chantix) 0.5 Mg Tablet, 0.5 MG PO DAILY, (Reported) Discontinued Reason: Duplicate Order Entered as Reported by: SAULO ESTEVES on 11/22/17 0848 Last Action: Discontinued Review of Systems Review of Systems Constitutional: see HPI Respiratory: see HPI, cough, short of breath Cardiovascular: no symptoms reported Genitourinary: no symptoms reported Musculoskeletal: no symptoms reported Skin: no symptoms reported Psychiatric/Neurological: See HPI, Anxiety Hematologic/Lymphatic: No Symptoms Reported (CONCHA ROACH APRN) Past Syvrihj-Dqwayr-Yvwukp Hx Immunizations Up To Date Tetanus Booster (TDap): Unknown (CONCHA ROACH APRN) Seasonal Allergies Seasonal Allergies: Yes (CONCHA ROACH APRN) Past Medical History Surgeries: Yes (C/S x2, PORT, PANCREAS/LIVER STENT x6, OVARIAN CYSTECTOMY, RT CTR) Tubal Ligation Respiratory: Yes Asthma Cardiac: Yes Hypertension Neurological: No Reproductive Disorders: Yes Female Reproductive Disorders: Endometriosis Sexually Transmitted Disease: No Gastrointestinal: Yes (CHRONIC PANCREATITIS, SEVERAL STENTS) Gastroesophageal Reflux, Chronic Constipation, Pancreatitis, Chronic Diarrhea Musculoskeletal: Yes Arthritis Endocrine: No Loss of Vision: Bilateral Hearing Impairment: Denies Cancer: No Psychosocial: Yes ADD/ADHD Integumentary: No Blood Disorders: No (CONCHA ROACH APRN) Physical Exam Vital Signs Vital Signs - First Documented 10/10/21 19:38 Pulse 105 Resp 22 B/P (MAP) 141/112 (122) Pulse Ox 98 O2 Delivery Room Air (EMILI LENNONA Miguel Angel DO) Vital Signs Capillary Refill : (CONCHA ROAHC APRN) Height, Weight, BMI Height: 5'2.00" Weight: 129lbs. 0.0oz. 58.122403mg; 27.00 BMI Method:Stated General Appearance: No Apparent Distress, WD/WN, Anxious (Tearful and crying on arrival to the room. She states it is because she cannot breathe. Her lungs are clear with good air movement her oxygen saturation is 98% on room air. She is unable to sit still, constantly moving.) Eyes: Bilateral Eye Normal Inspection, Bilateral Eye PERRL, Bilateral Eye EOMI Neck: Full Range of Motion, Normal Inspection Respiratory: No Accessory Muscle Use, No Respiratory Distress Cardiovascular: Normal Peripheral Pulses, Tachycardia Gastrointestinal: Normal Bowel Sounds, Non Tender, Soft Extremity: Normal Capillary Refill, Normal Inspection Neurologic/Psychiatric: Alert, Oriented x3 Skin: Normal Color, Warm/Dry (CONCHA ROACH APRN) Progress/Results/Core Measures Suspected Sepsis SIRS Temperature: Pulse: Respiratory Rate: Laboratory Tests 10/10/21 19:58: White Blood Count 7.1 Blood Pressure / Mean: Laboratory Tests 10/10/21 19:58: Creatinine 1.45H, Platelet Count 201, Total Bilirubin 0.6 (CONCHA ROACH APRN) Results/Orders Lab Results Laboratory Tests Test 10/10/21 19:42 10/10/21 19:58 10/10/21 20:02 Range/Units Influenza Type A (RT-PCR) Not Detected Not Detecte Influenza Type B (RT-PCR) Not Detected Not Detecte SARS-CoV-2 RNA (RT-PCR) Not Detected Not Detecte White Blood Count 7.1 4.3-11.0 10^3/uL Red Blood Count 4.52 3.80-5.11 10^6/uL Hemoglobin 14.6 11.5-16.0 g/dL Hematocrit 44 35-52 % Mean Corpuscular Volume 97 80-99 fL Mean Corpuscular Hemoglobin 32 25-34 pg Mean Corpuscular Hemoglobin Concent 33 32-36 g/dL Red Cell Distribution Width 12.1 10.0-14.5 % Platelet Count 201 130-400 10^3/uL Mean Platelet Volume 11.4 9.0-12.2 fL Immature Granulocyte % (Auto) 0 % Neutrophils (%) (Auto) 80 H 42-75 % Lymphocytes (%) (Auto) 15 12-44 % Monocytes (%) (Auto) 4 0-12 % Eosinophils (%) (Auto) 0 0-10 % Basophils (%) (Auto) 1 0-10 % Neutrophils # (Auto) 5.7 1.8-7.8 10^3/uL Lymphocytes # (Auto) 1.1 1.0-4.0 10^3/uL Monocytes # (Auto) 0.3 0.0-1.0 10^3/uL Eosinophils # (Auto) 0.0 0.0-0.3 10^3/uL Basophils # (Auto) 0.0 0.0-0.1 10^3/uL Immature Granulocyte # (Auto) 0.0 0.0-0.1 10^3/uL Sodium Level 125 *L 135-145 MMOL/L Potassium Level 4.1 3.6-5.0 MMOL/L Chloride Level 90 L 98-107 MMOL/L Carbon Dioxide Level 18 L 21-32 MMOL/L Anion Gap 17 H 5-14 MMOL/L Blood Urea Nitrogen 10 7-18 MG/DL Creatinine 1.45 H 0.60-1.30 MG/DL Estimat Glomerular Filtration Rate 45 BUN/Creatinine Ratio 7 Glucose Level 932 *H 70-105 MG/DL Calcium Level 8.9 8.5-10.1 MG/DL Corrected Calcium 9.1 8.5-10.1 MG/DL Total Bilirubin 0.6 0.1-1.0 MG/DL Aspartate Amino Transf (AST/SGOT) 77 H 5-34 U/L Alanine Aminotransferase (ALT/SGPT) 111 H 0-55 U/L Alkaline Phosphatase 132 40-136 U/L Total Protein 7.1 6.4-8.2 GM/DL Albumin 3.7 3.2-4.5 GM/DL Beta-Hydroxybutyrate (Chem panel) 0.17 0.00-0.27 MMOL/L Serum Test, Qualitative NEGATIVE NEGATIVE Urine Color YELLOW Urine Clarity CLEAR Urine pH 7.0 5-9 Urine Specific Mcleod <=1.005 1.016-1.022 Urine Protein NEGATIVE NEGATIVE Urine Glucose (UA) 3+ H NEGATIVE Urine Ketones NEGATIVE NEGATIVE Urine Nitrite NEGATIVE NEGATIVE Urine Bilirubin NEGATIVE NEGATIVE Urine Urobilinogen 0.2 < = 1.0 MG/DL Urine Leukocyte Esterase NEGATIVE NEGATIVE Urine RBC (Auto) NEGATIVE NEGATIVE Urine RBC RARE /HPF Urine WBC NONE /HPF Urine Crystals NONE /LPF Urine Bacteria NEGATIVE /HPF Urine Casts NONE /LPF Urine Mucus NEGATIVE /LPF Urine Culture Indicated NO Urine Opiates Screen NEGATIVE NEGATIVE Urine Oxycodone Screen NEGATIVE NEGATIVE Urine Methadone Screen NEGATIVE NEGATIVE Urine Propoxyphene Screen NEGATIVE NEGATIVE Urine Barbiturates Screen NEGATIVE NEGATIVE Ur Tricyclic Antidepressants Screen NEGATIVE NEGATIVE Urine Phencyclidine Screen NEGATIVE NEGATIVE Urine Amphetamines Screen NEGATIVE NEGATIVE Urine Methamphetamines Screen NEGATIVE NEGATIVE Urine Benzodiazepines Screen NEGATIVE NEGATIVE Urine Cocaine Screen NEGATIVE NEGATIVE Urine Cannabinoids Screen NEGATIVE NEGATIVE (EMILI LENNONA Miguel Angel DO) Vital Signs/I&O 10/10/21 10/10/21 19:38 19:38 Pulse 105 Resp 22 B/P (MAP) 141/112 (122) Pulse Ox 98 O2 Delivery Room Air Room Air (EMILI LENNONA K DO) Vital Signs/I&O Capillary Refill : (CONCHA ROACH APRN) Diagnostic Imaging Diagonstic Imaging: Xray Plain Films/CT/US/NM/MRI: chest Comments NAME: LUIS ANGEL JANG MED REC#: [id number] PT STATUS: REG ER : 1975 PHYSICIAN: CONCHA ROACH APRN ADMIT DATE: 10/10/21/ER Signed Date of Exam:10/10/21 CHEST 1 VIEW, AP/PA ONLY INDICATION: Shortness of breath and cough. COMPARISON: 01/05/2010. FINDINGS: The lungs appear clear without focal infiltrate or consolidation. There are no findings of an effusion. There is no evidence of a pneumothorax. Heart size and mediastinal contours appear appropriate. Pulmonary vascularity appears within normal limits. There is no acute or suspicious osseous abnormality demonstrated. A left subclavian line is unchanged. IMPRESSION: No radiographic evidence of an acute cardiopulmonary process. Dictated by: Dictated on workstation # [id number] Dict: 10/10/212034 Trans: 10/10/212035 [facility] [id number] Interpreted by: RANULFO CAMARENA MD Electronically signed by: RANULFO CAMARENA MD 10/10/212035 (CONCHA ROACH APRN) Departure Communication (Admissions) [id number]-spoke with Dr. Andrea will admit the patient to the ICU for new onset diabetes with hyperosmolar hyperglycemic nonketotic state. Ordered 8 units of regular insulin bolus then drip to start at 8 units an hour. (CONCHA ROACH APRN) Impression Primary Impression: HHNC (hyperglycemic hyperosmolar nonketotic coma) Disposition: ADMITTED INPATIENT Condition: Stable Admissions Decision to Admit Reason: Admit from ER (General) Decision to Admit/Date: Oct 10, 2021 Time/Decision to Admit Time: 21:03 (CONCHA ROACH APRN) Departure-Patient Inst. Referrals: MISA JOHNS DO (PCP/Family) Primary Care Physician Scripts Metformin HCl (Metformin HCl) 500 Mg Tablet 500 MG PO BID for 30 Days, #120 TAB TAKE ONE TAB TWICE DAILY WITH MEALS. INCREASE TO TWO TABS TWICE DAILY IN ABOUT A WEEK IF TOLERATED. Prov: CHERYLE SOOD MD 10/12/21 ATTENDING PHYSICIAN NOTE: I WAS PHYSICALLY PRESENT ER PHYSICIAN WHEN THIS PATIENT WAS IN ER, BUT I WAS NOT INVOLVED IN ANY DECISION MAKING OR ANY CARE OF THIS PATIENT. (SRI LENNON DO) CONCHA ROACH APRN Oct 10, 2021 19:47 SRI LENNON DO Oct 14, 2021 22:40
[2021-10-10 20:10] LABS: BASOPHILS % (AUTO) 1 % (0-10); EOSINOPHILS % (AUTO) 0 % (0-10); HEMATOCRIT 44 % (35-52); HEMOGLOBIN 14.6 g/dL (11.5-16.0); LYMPHOCYTES # (AUTO) 1.1 10^3/uL (1.0-4.0); LYMPHOCYTES % (AUTO) 15 % (12-44); MEAN CORPUSCULAR HEMOGLOBIN 32 pg (25-34); MEAN CORPUSCULAR HGB CONC 33 g/dL (32-36); MEAN CORPUSCULAR VOLUME 97 fL (80-99); MEAN PLATELET VOLUME 11.4 fL (9.0-12.2); MONOCYTES # (AUTO) 0.3 10^3/uL (0.0-1.0); MONOCYTES % (AUTO) 4 % (0-12); NEUTROPHILS # (AUTO) 5.7 10^3/uL (1.8-7.8); NEUTROPHILS % (AUTO) 80 % (42-75); PLATELET COUNT 201 10^3/uL (130-400); WHITE BLOOD COUNT 7.1 10^3/uL (4.3-11.0)
[2021-10-10 20:28] LABS: AMPHETAMINE SCREEN, URINE NEGATIVE (NEGATIVE); BARBITURATE SCREEN URINE NEGATIVE (NEGATIVE); BENZODIAZEPINES SCREEN URINE NEGATIVE (NEGATIVE); CANNABINOID SCREEN, URINE NEGATIVE (NEGATIVE); COCAINE SCREEN URINE NEGATIVE (NEGATIVE); METHADONE STAT NEGATIVE (NEGATIVE); METHAMPHETAMINE SCREEN URINE S NEGATIVE (NEGATIVE); OPIATE SCREEN URINE NEGATIVE (NEGATIVE); OXYCODONE STAT NEGATIVE (NEGATIVE); PROPOXYPHENE STAT NEGATIVE (NEGATIVE); TRICYCLIC ANTIDEPRESSANTS SCRE NEGATIVE (NEGATIVE)
[2021-10-10 20:29] LABS: ALBUMIN 3.7 GM/DL (3.2-4.5); BILIRUBIN,TOTAL 0.6 MG/DL (0.1-1.0); CALCIUM 8.9 MG/DL (8.5-10.1); CREATININE SERUM 1.45 MG/DL (0.60-1.30); POTASSIUM 4.1 MMOL/L (3.6-5.0); TOTAL PROTEIN 7.1 GM/DL (6.4-8.2)
--- NOTE | 2021-10-10 20:37 | Diagnostic Imaging Report ---
INDICATION: Shortness of breath and cough. COMPARISON: 01/05/2010. FINDINGS: The lungs appear clear without focal infiltrate or consolidation. There are no findings of an effusion. There is no evidence of a pneumothorax. Heart size and mediastinal contours appear appropriate. Pulmonary vascularity appears within normal limits. There is no acute or suspicious osseous abnormality demonstrated. A left subclavian line is unchanged. IMPRESSION: No radiographic evidence of an acute cardiopulmonary process. Dictated by: Dictated on workstation # [id number]
[2021-10-10] MEDS ORDERED: LACTATED RINGERS 1,000 ML IV SCH (20:45)
[2021-10-10] MEDS ORDERED: inSUlin (REGULAR) HUMAN 1 UNIT/0.01 ML (CHARGE PER UNIT) IV SCH (21:00)
[2021-10-10] MEDS ORDERED: 1/2 NS IV SOLUTION 1,000 ML IV SCH (21:00)
[2021-10-10 22:13] LABS: BILIRUBIN,URINE NEGATIVE (NEGATIVE); CLARITY,URINE CLEAR; COLOR,URINE YELLOW; GLUCOSE, URINE (UA) 3+ (NEGATIVE); KETONES,URINE NEGATIVE (NEGATIVE); LEUKOCYTE ESTERASE ,URINE NEGATIVE (NEGATIVE); NITRITE,URINE NEGATIVE (NEGATIVE); PROTEIN,URINE NEGATIVE (NEGATIVE)
[2021-10-10 22:20] LABS: POTASSIUM 3.6 MMOL/L (3.6-5.0)
[2021-10-10 22:21] LABS: CALCIUM 8.9 MG/DL (8.5-10.1)
[2021-10-10 22:23] LABS: BACTERIA,URINE NEGATIVE /HPF; RBC,URINE RARE /HPF
[2021-10-10 22:26] LABS: CREATININE SERUM 0.95 MG/DL (0.60-1.30)
[2021-10-10] MEDS ORDERED: POTASSIUM CL 10MEQ/50ML IVPB 100 ML IV ONE (23:42)
[2021-10-10] MEDS ORDERED: NS IV 1000 ML 1,000 ML IV SCH (23:45)
[2021-10-10] MEDS ORDERED: CATHETER FLUSH 10 ML SYR IV PRN (23:45)
[2021-10-10] MEDS ORDERED: ONDANSETRON 4 MG/2 ML (SDV) Z0FRAN IV PRN (23:45)
[2021-10-11] MEDS: 1/2 NS IV SOLUTION 1,000 ML IV SCH ×3 (00:44→09:30)
[2021-10-11] MEDS: D5 1/2 NS 1000 ML IV SOLUTION 1,000 ML IV SCH ×2 (01:20→05:36)
[2021-10-11] MEDS: POTASSIUM CL 10MEQ/50ML IVPB 50 ML IV SCH ×3 (03:13→08:12)
[2021-10-11 03:37] LABS: CREATININE SERUM 0.69 MG/DL (0.60-1.30)
[2021-10-11 06:13] LABS: BASOPHILS % (AUTO) 0 % (0-10); EOSINOPHILS % (AUTO) 0 % (0-10); HEMATOCRIT 40 % (35-52); HEMOGLOBIN 13.8 g/dL (11.5-16.0); LYMPHOCYTES % (AUTO) 23 % (12-44); MEAN CORPUSCULAR HEMOGLOBIN 32 pg (25-34); MEAN CORPUSCULAR HGB CONC 35 g/dL (32-36); MEAN CORPUSCULAR VOLUME 93 fL (80-99); MONOCYTES # (AUTO) 0.8 10^3/uL (0.0-1.0); MONOCYTES % (AUTO) 6 % (0-12); NEUTROPHILS # (AUTO) 9.2 10^3/uL (1.8-7.8); NEUTROPHILS % (AUTO) 70 % (42-75); PLATELET COUNT 197 10^3/uL (130-400); WHITE BLOOD COUNT 13.1 10^3/uL (4.3-11.0)
[2021-10-11 06:24] LABS: ALBUMIN 3.3 GM/DL (3.2-4.5); POTASSIUM 3.4 MMOL/L (3.6-5.0)
[2021-10-11 06:25] LABS: CALCIUM 8.7 MG/DL (8.5-10.1)
[2021-10-11 06:26] LABS: TOTAL PROTEIN 6.4 GM/DL (6.4-8.2)
[2021-10-11 06:28] LABS: BILIRUBIN,TOTAL 0.7 MG/DL (0.1-1.0)
[2021-10-11 06:29] LABS: PHOSPHORUS 3.3 MG/DL (2.3-4.7)
[2021-10-11 06:30] LABS: CREATININE SERUM 0.67 MG/DL (0.60-1.30)
[2021-10-11 06:33] LABS: MAGNESIUM 1.9 MG/DL (1.6-2.4)
[2021-10-11] MEDS: CATHETER FLUSH 10 ML SYR IV SCH ×3 (06:52→22:32)
[2021-10-11] MEDS: MAGNESIUM 1 GM/100 ML IVPB 100 ML IV SCH (06:56)
[2021-10-11] MEDS: KCL 20 MEQ TAB (K-DUR) PO SCH (06:56)
[2021-10-11] MEDS: ENOXAPARIN 40 MG/0.4 ML (LOVENOX) SYR SC SCH (08:09)
[2021-10-11] MEDS ORDERED: MILK OF MAGNESIA 400 MG/5 ML 30 ML UDC PO PRN (08:15)
[2021-10-11] MEDS ORDERED: metFORMIN 500 MG (GLUCOPHAGE) TAB PO ONE (08:15)
[2021-10-11] MEDS: DULoxetine 30 MG (CYMBALTA) CAP PO SCH (08:50)
[2021-10-11] MEDS: PREGABALIN 75 MG (LYRICA) CAP PO SCH ×2 (08:50→21:48)
[2021-10-11] MEDS: PANTOPRAZOLE 40 MG (PROTONIX) TAB PO SCH (08:50)
[2021-10-11] MEDS: lisINopril 20 MG (PRINIVIL) TABLET PO SCH (08:50)
[2021-10-11] MEDS ORDERED: KCL 20 MEQ TAB (K-DUR) PO ONE (09:00)
[2021-10-11] MEDS: polyethylene glycoL POWDER 17 GM (MIRALAX) PACK PO SCH ×2 (09:30→19:53)
[2021-10-11] MEDS: SENNA W/DOCUSATE (SENOKOT S) TABLET PO SCH ×2 (09:30→19:54)
[2021-10-11] MEDS: DOCUSATE SODIUM 100 MG (COLACE) CAP PO SCH ×2 (09:30→19:53)
[2021-10-11] MEDS: inSUlin ASPART (NovoLOG) 1 UNIT/0.01 ML (CHARGE PER UNIT) SC SCH ×3 (10:17→19:52)
[2021-10-11] MEDS ORDERED: BUDE0.5A IH (16:10)
[2021-10-11] MEDS ORDERED: FURO40TA4 PO (16:10)
[2021-10-11] MEDS ORDERED: IBUP-1780 PO (16:10)
[2021-10-11] MEDS ORDERED: FLUT1AER IH (16:10)
[2021-10-11] MEDS ORDERED: LISI1TAB46 PO (16:10)
[2021-10-11] MEDS ORDERED: ZOLP10TA PO (16:10)
[2021-10-11] MEDS ORDERED: CEFD300C3 PO (16:10)
[2021-10-11] MEDS ORDERED: CELE200C PO (16:10)
[2021-10-11] MEDS ORDERED: METH2.5T PO (16:10)
[2021-10-11] MEDS ORDERED: METH-288 PO (16:10)
[2021-10-11] MEDS ORDERED: PREG75CA75 PO (16:10)
[2021-10-11] MEDS ORDERED: CHOL20002 PO (16:10)
[2021-10-11] MEDS ORDERED: ESTR2TAB4 PO (16:10)
[2021-10-11] MEDS ORDERED: BUPR1FIL3 SL (16:10)
[2021-10-11] MEDS ORDERED: DICY20TA PO (16:10)
[2021-10-11] MEDS ORDERED: DULO60CA59 PO (16:25)
[2021-10-11] MEDS ORDERED: ATOR40TA70 PO (16:25)
[2021-10-11] MEDS ORDERED: ACETAMINOPHEN 325 MG TABLET PO PRN (19:15)
[2021-10-11] MEDS ORDERED: RT--FLUTICASONE/SALMETEROL 113-14 (AIRDUO RespiCLICK) IH SCH (21:00)
[2021-10-11] MEDS ORDERED: ZOLPIDEM 5 MG (AMBIEN) TAB PO SCH (21:40)
--- NOTE | 2021-10-11 21:54 | History & Physical-Hospitalist ---
History of Present Illness HPI/Chief Complaint Charis Barrientos is a 46 year old female with PMH HTN, HLD, asthma, fibromyalgia, possible RA, GERD, obesity, tobacco abuse, who presented feeling generally unwell. She reports having upper respiratory symptoms recently. She has been congested and coughing. She denies fevers. She denies chest pain and shortness of breath. She denies abdominal pain, nausea, vomiting, and diarrhea. She denies dysuria. She reports urinary frequency. Source: patient Exam Limitations: no limitations Date Seen 10/11/21 Time Seen by a Provider: 09:15 Attending Physician Cheryle Sood MD PCP Indio Hale DO Referring Physician Date of Admission Oct 10, 2021 at 21:00 Home Medications & Allergies Home Medications Reviewed patient Home Medication Reconciliation performed by pharmacy medication reconciliations auto glass technician and/or nursing. Patients Allergies have been reviewed. Allergies Allergies Coded Allergies NKANo Known Allergies (Verified Allergy, Unknown, 11/11/05) Past Tdhkoib-Qaxmbk-Ewglua Hx Patient Social History Tobacco Use?: Yes Tobacco type used: Cigarettes Smoking Status: Current Everyday Smoker Smokeless Tobacco Frequency: Never a User Use of E-Cig and/or Vaping dev: No Substance use?: No Alcohol Use?: No Pt feels they are or have been: Unable to obtain Immunizations Up To Date Date of Influenza Vaccine: January 07, 2021 First/Initial COVID19 Vaccinat: DECEMBER 2020 Second COVID19 Vaccination Holden: JANUARY 2021 Tetanus Booster (TDap): Unknown Date of Pneumonia Vaccine: Jun 19, 2011 Seasonal Allergies Seasonal Allergies: Yes Current Status status: No status: No Advance Directives: No Communicates: Verbally Primary Language: Montenegrin Preferred Spoken Language: Montenegrin Is interpretation needed?: No Sensory deficits: Vision impairment Implanted or Applied Medical D: None Past Medical History Surgeries: Tubal Ligation Asthma Hypertension Sexually Transmitted Disease: No Gastroesophageal Reflux, Chronic Constipation, Pancreatitis, Chronic Diarrhea Arthritis Loss of Vision: Bilateral Hearing Impairment: Denies ADD/ADHD Blood Disorders: No Family Medical History No Pertinent Family Hx Review of Systems Constitutional: malaise EENTM: no symptoms reported Respiratory: no symptoms reported Cardiovascular: no symptoms reported Gastrointestinal: no symptoms reported Genitourinary: no symptoms reported Musculoskeletal: no symptoms reported Skin: no symptoms reported Psychiatric/Neurological: No Symptoms Reported Physical Exam Physical Exam Vital Signs Vital Signs - First Documented 10/10/21 10/10/21 10/11/21 19:38 23:34 07:53 Temp 36.8 Pulse 105 Resp 22 B/P (MAP) 141/112 (122) Pulse Ox 98 O2 Delivery Room Air O2 Flow Rate 0.00 Capillary Refill : Less Than 3 Seconds Height, Weight, BMI Height: 5'2.00" Weight: 129lbs. 0.0oz. 58.438964tm; 32.85 BMI Method:Stated General Appearance: No Apparent Distress, Anxious, Obese HEENT: PERRL/EOMI, Pharynx Normal Neck: Normal Inspection, Supple Respiratory: Lungs Clear, Normal Breath Sounds, No Respiratory Distress Cardiovascular: Regular Rate, Rhythm, No Edema, No Murmur Gastrointestinal: Normal Bowel Sounds, Non Tender, Soft Extremity: Normal Inspection, Non Tender, No Pedal Edema Neurologic/Psychiatric: Alert, Oriented x3, No Motor/Sensory Deficits, Normal Mood/Affect Skin: Normal Color, Warm/Dry Results Results/Procedures Labs Laboratory Tests 10/10/21 19:58 10/10/21 22:05 10/11/21 03:14 10/11/21 06:04 10/12/21 05:45 Patient resulted labs reviewed. Imaging: Reviewed Imaging Report Assessment/Plan Admission Diagnosis T2DM with HHS Admission Status: Inpatient Order (span 2 midnights) Reason for Inpatient Admission: IV insulin Assessment and Plan Newly diagnosed T2DM with HHS IV insulin IV fluids Blood sugars improved Transition off insulin drip Levemir Metformin Sliding scale insulin A1C pending HTN HLD Asthma Fibromyalgia Possible RA GERD Continue home meds Hold methotrexate Hold diuretics Diagnosis/Problems Diagnosis/Problems (1) Newly diagnosed diabetes Status: Acute (2) T2DM (type 2 diabetes mellitus) Status: Acute Qualifiers: Diabetes mellitus watermaster insulin use: without retirement use Diabetes mellitus complication status: with hyperglycemia Qualified Codes: E11.65 - Type 2 diabetes mellitus with hyperglycemia (3) Hyperosmolar hyperglycemic state (HHS) Status: Acute CHERYLE SOOD MD Oct 11, 2021 21:54
[2021-10-11] MEDS ORDERED: RT-ALBUTEROL/IPRATROPIUM 3 ML (DUONEB) VIAL INH PRN (22:15)
[2021-10-12] MEDS: inSUlin ASPART (NovoLOG) 1 UNIT/0.01 ML (CHARGE PER UNIT) SC SCH ×2 (05:24→11:58)
[2021-10-12] MEDS: CATHETER FLUSH 10 ML SYR IV SCH ×2 (05:25→14:50)
[2021-10-12 05:59] LABS: BASOPHILS # (AUTO) 0.1 10^3/uL (0.0-0.1); BASOPHILS % (AUTO) 1 % (0-10); EOSINOPHILS # (AUTO) 0.1 10^3/uL (0.0-0.3); EOSINOPHILS % (AUTO) 1 % (0-10); HEMATOCRIT 41 % (35-52); HEMOGLOBIN 13.7 g/dL (11.5-16.0); LYMPHOCYTES # (AUTO) 4.1 10^3/uL (1.0-4.0); LYMPHOCYTES % (AUTO) 46 % (12-44); MEAN CORPUSCULAR HEMOGLOBIN 32 pg (25-34); MEAN CORPUSCULAR HGB CONC 33 g/dL (32-36); MEAN CORPUSCULAR VOLUME 96 fL (80-99); MONOCYTES # (AUTO) 0.5 10^3/uL (0.0-1.0); MONOCYTES % (AUTO) 6 % (0-12); NEUTROPHILS % (AUTO) 45 % (42-75); PLATELET COUNT 188 10^3/uL (130-400); WHITE BLOOD COUNT 8.9 10^3/uL (4.3-11.0)
[2021-10-12] MEDS: MAGNESIUM 1 GM/100 ML IVPB 100 ML IV SCH (06:00)
[2021-10-12] MEDS: POTASSIUM CL 10MEQ/50ML IVPB 50 ML IV SCH (06:00)
[2021-10-12] MEDS: KCL 20 MEQ TAB (K-DUR) PO SCH (06:00)
[2021-10-12 06:28] LABS: CALCIUM 8.5 MG/DL (8.5-10.1)
[2021-10-12 06:31] LABS: BILIRUBIN,TOTAL 0.3 MG/DL (0.1-1.0)
[2021-10-12 06:32] LABS: PHOSPHORUS 3.8 MG/DL (2.3-4.7)
[2021-10-12 06:33] LABS: CREATININE SERUM 0.72 MG/DL (0.60-1.30)
[2021-10-12] MEDS ORDERED: metFORMIN 500 MG (GLUCOPHAGE) TAB PO SCH ×2 (07:00→16:00)
[2021-10-12] MEDS: SENNA W/DOCUSATE (SENOKOT S) TABLET PO SCH (09:01)
[2021-10-12] MEDS: DOCUSATE SODIUM 100 MG (COLACE) CAP PO SCH (09:01)
[2021-10-12] MEDS: polyethylene glycoL POWDER 17 GM (MIRALAX) PACK PO SCH (09:01)
[2021-10-12] MEDS: DULoxetine 30 MG (CYMBALTA) CAP PO SCH (09:03)
[2021-10-12] MEDS: lisINopril 20 MG (PRINIVIL) TABLET PO SCH (09:04)
[2021-10-12] MEDS: PANTOPRAZOLE 40 MG (PROTONIX) TAB PO SCH (09:04)
[2021-10-12] MEDS: PREGABALIN 75 MG (LYRICA) CAP PO SCH (09:04)
[2021-10-12] MEDS: ENOXAPARIN 40 MG/0.4 ML (LOVENOX) SYR SC SCH (09:04)
[2021-10-12] MEDS ORDERED: METF-397 PO (10:39)
--- NOTE | 2021-10-12 12:18 | Discharge Summary ---
Discharge Summary Hospital Course Problems/Dx: (1) Newly diagnosed diabetes Status: Acute (2) T2DM (type 2 diabetes mellitus) Status: Acute Qualifiers: Qualified Codes: E11.65 - Type 2 diabetes mellitus with hyperglycemia (3) Hyperosmolar hyperglycemic state (HHS) Status: Acute Hospital Course Date of Admission: Oct 10, 2021 at 21:00 Admission Diagnosis: T2DM with HHS Family Physician/Provider: Indio Hale DO Date of Discharge: 10/12/21 Discharge Diagnosis: Newly diagnosed T2DM with HHS Hospital Course: Charis Barrientos is a 46 year old female with PMH HTN, HLD, asthma, fibromyalgia, GERD, possible RA, obesity, who was admitted with newly diagnosed type 2 diabetes mellitus with hyperosmolar hyperglycemic nonketotic state. She was started on IV insulin and her blood sugars improved. She was also given IV fluids. Her HgbA1C was 8.7%. She was started on Metformin. She was given d iabetes education. She should follow up with Dr. Hale in a week or two. She was discharged home in stable condition. Labs and Pending Lab Test: Laboratory Tests 10/11/21 16:27: Glucometer 121H 10/11/21 19:35: Glucometer 165H 10/12/21 05:17: Glucometer 136H 10/12/21 05:45: White Blood Count 8.9, Red Blood Count 4.26, Hemoglobin 13.7, Hematocrit 41, Mean Corpuscular Volume 96, Mean Corpuscular Hemoglobin 32, Mean Corpuscular Hemoglobin Concent 33, Red Cell Distribution Width 12.5, Platelet Count 188, Mean Platelet Volume 11.0, Immature Granulocyte % (Auto) 0, Neutrophils (%) (Auto) 45, Lymphocytes (%) (Auto) 46H, Monocytes (%) (Auto) 6, Eosinophils (%) (Auto) 1, Basophils (%) (Auto) 1, Neutrophils # (Auto) 4.0, Lymphocytes # (Auto) 4.1H, Monocytes # (Auto) 0.5, Eosinophils # (Auto) 0.1, Basophils # (Auto) 0.1, Immature Granulocyte # (Auto) 0.0, Sodium Level 137, Potassium Level 4.0, Chloride Level 106, Carbon Dioxide Level 21, Anion Gap 10, Blood Urea Nitrogen 10, Creatinine 0.72, Estimat Glomerular Filtration Rate 105, BUN/Creatinine Ratio 14, Glucose Level 132H, Calcium Level 8.5, Corrected Calcium 9.3, Phosphorus Level 3.8, Magnesium Level 2.0, Total Bilirubin 0.3, Aspartate Amino Transf (AST/SGOT) 70H, Alanine Aminotransferase (ALT/SGPT) 90H, Alkaline Phosphatase 90, Total Protein 6.0L, Albumin 3.0L, Beta-Hydroxybutyrate (Chem panel) 0.11 10/12/21 10:04: Glucometer 142H Microbiology 10/10/21 MRSA Screen - Final, Complete MRSA not isolated Home Meds Active Metformin HCl 500 Mg Tablet 500 Mg PO BID 30 Days TAKE ONE TAB TWICE DAILY WITH MEALS. INCREASE TO TWO TABS TWICE DAILY IN ABOUT A WEEK IF TOLERATED. Reported Atorvastatin Calcium 40 Mg Tablet 40 Mg PO HS Duloxetine HCl 60 Mg Capsule.dr 60 Mg PO DAILY Vitamin D3 (Cholecalciferol (Vitamin D3)) 50 Mcg Capsule 50 Mcg PO DAILY Estrace Tablet (Estradiol) 2 Mg Tablet 2 Mg PO DAILY Ibuprofen 800 Mg Tablet 800 Mg PO Q8H PRN Lisinopril-Hctz 20-12.5 mg Tab (Lisinopril/Hydrochlorothiazide) 1 Each Tablet 1 Each PO DAILY Celebrex (Celecoxib) 200 Mg Capsule 200 Mg PO BID Breo Ellipta 100-25 Mcg INH (Fluticasone/Vilanterol) 1 Each Blst.w.dev 1 Each IH DAILY Methotrexate (Methotrexate Sodium) 2.5 Mg Tablet 17.5 Mg PO SUN TAKES 7 (2.5MG) TABS Suboxone 8 mg-2 mg Sl Film (Buprenorphine HCl/Naloxone HCl) 1 Each Film 1 Each SL BID Budesonide 0.5 Mg/2 Ml Ampul.neb 0.5 Mg IH BID PRN Dicyclomine HCl 20 Mg Tablet 20 Mg PO ACHS Methylphenidate HCl 10 Mg Tablet 10 Mg PO 0700,1300 Pregabalin 75 Mg Capsule 75 Mg PO TID Ambien (Zolpidem Tartrate) 10 Mg Tablet 10 Mg PO HS Furosemide 40 Mg Tablet 40 Mg PO 0700,1300 Fluticasone Propionate 16 Gm [place].susp 1-2 Luana NSEACH DAILY PRN Ventolin Hfa (Albuterol Sulfate) 1 Puff Puff 2 Puff IH Q4H PRN Miralax (Polyethylene Glycol 3350) 17 Gm Powd.pack 17 Gm PO DAILY PRN Cetirizine HCl 10 Mg Tablet 10 Mg PO DAILY PRN Pantoprazole Sodium 40 Mg Tablet.dr 40 Mg PO DAILY Potassium Chloride 20 Meq Tablet.er 20 Meq PO DAILY Assessment/Pt Instructions See instructions Discharge Planning: <30 minutes discharge planning Discharge Instructions Discharge Diet: ADA Diet Activity as Tolerated: Yes Discharge Physical Examination Vital Signs Vital Signs Date Time Temp Pulse Resp B/P (MAP) Pulse Ox O2 Delivery O2 Flow Rate FiO2 10/12/21 11:57 36.6 75 18 146/95 97 Room Air 10/11/21 22:22 0.00 General Appearance: No Apparent Distress, Obese HEENT: PERRL/EOMI, Pharynx Normal Respiratory: Lungs Clear, Normal Breath Sounds, No Respiratory Distress Cardiovascular: Regular Rate, Rhythm, No Edema, No Murmur Gastrointestinal: Normal Bowel Sounds, Non Tender, Soft Extremity: Normal Inspection, Non Tender, No Pedal Edema Skin: Normal Color, Warm/Dry Neurologic/Psychiatric: Alert, Oriented x3, No Motor/Sensory Deficits, Normal Mood/Affect Allergies: Coded Allergies: NKANo Known Allergies (Verified Allergy, Unknown, 11/11/05) Copy Copies To 1: INDIO HALE DO Discharge Summary Date of Admission Oct 10, 2021 at 21:00 Date of Discharge Discharge Date: Oct 12, 2021 Discharge Time: 12:14 Admission Diagnosis Newly diagnosed T2DM Discharge Diagnosis (1) Newly diagnosed diabetes Status: Acute (2) T2DM (type 2 diabetes mellitus) Status: Acute Qualifiers: Qualified Codes: E11.65 - Type 2 diabetes mellitus with hyperglycemia (3) Hyperosmolar hyperglycemic state (HHS) Status: Acute CHERYLE SOOD MD Oct 12, 2021 12:18
[2021-10-12 14:55] VITALS: BP 146/95
--- NOTE | 2021-10-13 14:01 | Physician Query Clarification ---
PQ-Intro New Diagnosis Admission/Discharge Admission Date: Oct 10, 2021 at 21:00 Discharge Date: Oct 12, 2021 at 14:56 Dr. Sood, The medical record reflects the following clinical scenario: History/Risk Factors: DM II with HHS Clinical Findings: Sodium 1.25 Treatment: IV Sodium Chloride, IVF Question: What condition best reflects the above clinical scenario? Please document a response in the Progress Noter or Discharge Summary. 1. Hyponatremia 2. hyponatremia is inherit to DM w/HHS 3. Other, with explanation of the clinical findings. 4. Clinically undetermined, no explanation for the clinical findings. PHYSICIAN RESPONSE What condition reflects above: 2 Please remember a lack of response to the above will prompt a phone page by [facility] /Coding staff. In responding to this query, please exercise your independent professional judgment. The purpose of this communication is to more accurately reflect the complexity of your patients condition. The fact that a question is asked does not imply that any particular answer is desired or expected. Thank you for your timely response to this clarification. Requestors name: Kanika THIS PHYSICIAN QUERY FORM IS A PERMANENT PART OF THE MEDICAL RECORD KANIKA SELF Oct 13, 2021 14:01 CHERYLE SOOD MD Oct 15, 2021 14:30
== END 2021-10-12 14:56 | disposition home or self-care (01) | DRG 639 ==
LOC: EDUNIT# 19:25 → ER 19:26 → ICU 21:00 → 4TH 10-11 14:03
PROVIDERS: ADMIT Internal Medicine; ATTEND Internal Medicine
PROC: 8E0ZXY6 Isolation (ICD-10-PCS; principal; 2021-10-10)
DX: E11.00 Type 2 diabetes mellitus with hyperosmolarity without nonketotic hyperglycemic-hyperosmolar coma (NKHHC) (principal); E78.5 Hyperlipidemia, unspecified; I10 Essential (primary) hypertension; K21.9 Gastro-esophageal reflux disease without esophagitis; F41.9 Anxiety disorder, unspecified; M19.91 Primary osteoarthritis, unspecified site; H54.7 Unspecified visual loss; F90.9 Attention-deficit hyperactivity disorder, unspecified type; Z20.822 Contact with and (suspected) exposure to COVID-19; J45.909 Unspecified asthma, uncomplicated; M79.7 Fibromyalgia; E66.9 Obesity, unspecified; Z68.21 Body mass index [BMI] 21.0-21.9, adult; F17.210 Nicotine dependence, cigarettes, uncomplicated
CPT/HCPCS: 36415; 71045; 80048; 80053; 80306; 81000; 82010; 82947; 83036; 83735; 84100; 84703; 85025; 87081; 87636; 94640; 94760; 96361; 96365; 96375

== ENCOUNTER 2023-05-07 11:09 | Emergency (ER) | payer MEDICAID ==
[~2023-05-07] VITALS: Ht 157 cm; Wt 53.9 kg
[~2023-05-07 11:09] MED LIST changes: +ATOR40TA70 PO; +BUDE0.5A IH; +CEFD300C3 PO; +CELE200C PO; +CHOL20002 PO; +DULO60CA59 PO; +ESTR2TAB4 PO; +FURO40TA4 PO; +METF-397 PO; +METH-288 PO; +METH2.5T PO; +POTA-330 PO; -POTA-51 PO; +PREG75CA75 PO; +ZOLP10TA PO
[2023-05-07 11:51] VITALS: BP 150/90
--- NOTE | 2023-05-07 12:30 | ED Cough/URI ---
General Chief Complaint: Cough/Cold/Flu Symptoms Stated Complaint: FLU-LIKE SYMPTOMS | CONGESTION | Nursing Triage Note: PT AMBULATORY TO ER. PT C/O COUGH, CONGESTION, AND SORE THROAT Source: patient Exam Limitations: no limitations (JERRY MAZARIEGOS) History of Present Illness Date Seen by Provider: May 07, 2023 Time Seen by Provider: 12:27 Initial Comments Patient is a 47-year-old female who presents the ED with flulike symptoms. Patient reports sore throat, nasal congestion, body pains and aches, chills subjective fever with increased fatigue and tiredness since 3:00 this morning. She denies any vomiting or diarrhea. Mild cough without shortness of breath or chest pain. Denies any urinary symptoms. She reports a scratchy throat mild discomfort with swallowing. Denies of any ear pain. Mild head pain. Denies taking anything for her symptoms at home. Patient denies history of CHF, coronary artery disease, diabetes, COPD or asthma. Family members with similar symptoms. Denies abdominal pain, rash, back pain, neck pain, unilateral weakness, nausea, vomiting, diarrhea (JERRY MAZARIEGOS) Allergies and Home Medications Allergies Coded Allergies: NKANo Known Allergies (Verified Allergy, Unknown, 11/11/05) Patient Home Medication List Home Medication List Reviewed: Yes (JERRY MAZARIEGOS) Albuterol Sulfate (Ventolin Hfa) 1 Puff Puff, 2 PUFF IH Q4H PRN for SHORTNESS OF BREATH, (Reported) Entered as Reported by: SAULO ESTEVES on 11/21/17 1524 Atorvastatin Calcium (Atorvastatin Calcium) 40 Mg Tablet, 40 MG PO HS, (Reported) Entered as Reported by: MALIA PHILIPPE on 10/11/21 1625 Budesonide (Budesonide) 0.5 Mg/2 Ml Ampul.neb, 0.5 MG IH BID PRN for SHORTNESS OF BREATH, (Reported) Entered as Reported by: MALIA PHILIPPE on 10/11/21 1610 Buprenorphine HCl/Naloxone HCl (Suboxone 8 mg-2 mg Sl Film) 1 Each Film, 1 EACH SL BID, (Reported) Entered as Reported by: MALIA PHILIPPE on 10/11/21 1610 Celecoxib (Celebrex) 200 Mg Capsule, 200 MG PO BID, (Reported) Entered as Reported by: MALIA PHILIPPE on 10/11/21 161 Cetirizine HCl (Cetirizine HCl) 10 Mg Tablet, 10 MG PO DAILY PRN for ALLERGY SYMPTOMS, (Reported) Entered as Reported by: SAULO ESTEVES on 11/21/17 1524 Cholecalciferol (Vitamin D3) (Vitamin D3) 50 Mcg Capsule, 50 MCG PO DAILY, (Reported) Entered as Reported by: MALIA PHILIPPE on 10/11/21 161 Dicyclomine HCl (Dicyclomine HCl) 20 Mg Tablet, 20 MG PO ACHS, (Reported) Entered as Reported by: MALIA PHILIPPE on 10/11/21 161 Duloxetine HCl (Duloxetine HCl) 60 Mg Capsule.dr, 60 MG PO DAILY, (Reported) Entered as Reported by: MALIA PHILIPPE on 10/11/21 162 Estradiol (Estrace Tablet) 2 Mg Tablet, 2 MG PO DAILY, (Reported) Entered as Reported by: MALIA PHILIPPE on 10/11/21 161 Fluticasone Propionate (Fluticasone Propionate) 16 Gm [place].susp, 1-2 SPRAY NSEACH DAILY PRN for CONGESTION, (Reported) Entered as Reported by: SAULO ESTEVES on 11/21/17 152 Fluticasone/Vilanterol (Breo Ellipta 100-25 Mcg INH) 1 Each Blst.w.dev, 1 EACH IH DAILY, (Reported) Entered as Reported by: MALIA PHILIPPE on 10/11/21 161 Furosemide (Furosemide) 40 Mg Tablet, 40 MG PO 0700,1300, (Reported) Entered as Reported by: MALIA PHILIPPE on 10/11/21 161 Ibuprofen (Ibuprofen) 800 Mg Tablet, 800 MG PO Q8H PRN for PAIN-MILD, (Reported) Entered as Reported by: MALIA PHILIPPE on 10/11/21 161 Lisinopril/Hydrochlorothiazide (Lisinopril-Hctz 20-12.5 mg Tab) 1 Each Tablet, 1 EACH PO DAILY, (Reported) Entered as Reported by: MALIA PHILIPPE on 10/11/21 161 Metformin HCl (Metformin HCl) 500 Mg Tablet, 500 MG PO BID Prescribed by: CHERYLE SOOD on 10/12/21 1039 Methotrexate Sodium (Methotrexate) 2.5 Mg Tablet, 17.5 MG PO SUN, (Reported) Entered as Reported by: MALIA PHILIPPE on 10/11/21 161 Methylphenidate HCl (Methylphenidate HCl) 10 Mg Tablet, 10 MG PO 0700,1300, (Reported) Entered as Reported by: MALIA PHILIPPE on 10/11/211609 Pantoprazole Sodium (Pantoprazole Sodium) 40 Mg Tablet.dr, 40 MG PO DAILY, (Reported) Entered as Reported by: SAULO ESTEVES on 11/21/17 1524 Polyethylene Glycol 3350 (Miralax) 17 Gm Powd.pack, 17 GM PO DAILY PRN for CONSTIPATION-2ND LINE, (Reported) Entered as Reported by: SAULO ESTEVES on 11/21/17 152 Potassium Chloride (Potassium Chloride) 20 Meq Tablet.er, 20 MEQ PO DAILY, (Reported) Entered as Reported by: SAULO ESTEVES on 11/21/17 152 Pregabalin (Pregabalin) 75 Mg Capsule, 75 MG PO TID, (Reported) Entered as Reported by: MALIA PHILIPPE on 10/11/211609 Zolpidem Tartrate (Ambien) 10 Mg Tablet, 10 MG PO HS, (Reported) Entered as Reported by: MALIA PHILIPPE on 10/11/211609 Review of Systems Review of Systems Constitutional: chills, malaise, weakness EENTM: nose congestion, throat pain; No ear pain, No blurred vision, No double vision Respiratory: cough Cardiovascular: No chest pain, No edema Gastrointestinal: No abdominal pain, No diarrhea, No nausea, No vomiting Musculoskeletal: No back pain, No joint pain Skin: No change in color, No change in hair/nails (JERRY MAZARIEGOS) All Other Systems Reviewed Negative Unless Noted: Yes (JERRY MAZARIEGOS) Past Uzyoiot-Sjnjdl-Qszlhn Hx Patient Social History Tobacco Use?: Yes Tobacco type used: Cigarettes Substance use?: No Alcohol Use?: No Pt feels they are or have been: No (JERRY MAZARIEGOS) Immunizations Up To Date Tetanus Booster (TDap): Unknown First/Initial COVID19 Vaccinat: RECEIVED, UNK WHEN Second COVID19 Vaccination Holden: RECEIVED, UNK WHEN Third COVID19 Vaccination Date: 2020 COVID19 Vaccine Conduit Mechanic: NEHEMIAH (JERRY MAZARIEGOS) Seasonal Allergies Seasonal Allergies: Yes (JERRY MAZARIEGOS) Past Medical History Surgeries: Yes (C/S x2, PORT, PANCREAS/LIVER STENT x6, OVARIAN CYSTECTOMY, RT [facility]) Tubal Ligation Respiratory: Yes Asthma Cardiac: Yes Hypertension Neurological: No Reproductive Disorders: Yes Female Reproductive Disorders: Endometriosis Sexually Transmitted Disease: No Gastrointestinal: Yes (CHRONIC PANCREATITIS, SEVERAL STENTS) Gastroesophageal Reflux, Chronic Constipation, Pancreatitis, Chronic Diarrhea Musculoskeletal: Yes Arthritis Endocrine: No Loss of Vision: Bilateral Hearing Impairment: Denies Cancer: No Psychosocial: Yes ADD/ADHD Integumentary: No Blood Disorders: No (JERRY MAZARIEGOS) Family Medical History No Pertinent Family Hx (JERRY MAZARIEGOS) Physical Exam Vital Signs - First Documented 05/07/23 11:51 Temp 36.7 Pulse 72 Resp 16 B/P (MAP) 150/90 (110) Pulse Ox 96 O2 Delivery Room Air (MARTIN LUU MD) Capillary Refill : (JERRY MAZARIEGOS) Height: 5'2.00" Weight: 129lbs. 0.0oz. 58.275403sx; 21.00 BMI Method:Stated General Appearance: WD/WN, no apparent distress Eyes: Bilateral Eye Normal Inspection, Bilateral Eye PERRL, Bilateral Eye EOMI HEENT: PERRL/EOMI, normal ENT inspection, TMs normal, pharynx normal Neck: non-tender, full range of motion, supple Respiratory: chest non-tender, lungs clear, normal breath sounds, no respiratory distress, no accessory muscle use Cardiovascular: regular rate, rhythm, no edema, no gallop, no JVD Gastrointestinal: normal bowel sounds, non tender, soft, no organomegaly Extremities: normal range of motion, non-tender, normal inspection, no pedal edema 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, no motor/sensory deficits, alert, normal mood/affect Skin: normal color, warm/dry (JERRY MAZARIEGOS) Progress/Results/Core Measures Suspected Sepsis SIRS Temperature: Pulse: 72 Respiratory Rate: 16 Blood Pressure 150 /90 Mean: 110 (JERRY MAZARIEGOS) Results/Orders Lab Results Laboratory Tests Test 05/07/23 12:07 Range/Units Influenza Type A (RT-PCR) Not Detected Not Detecte Influenza Type B (RT-PCR) Not Detected Not Detecte SARS-CoV-2 RNA (RT-PCR) Not Detected Not Detecte (MARTIN LUU MD) My Orders Orders - MARTIN LUU MD Covid 19 Inhouse Test (05/07/23 11:24) Influenza A And B By Pcr (05/07/23 11:24) (MARTIN LUU MD) Vital Signs/I&O 05/07/23 11:51 Temp 36.7 Pulse 72 Resp 16 B/P (MAP) 150/90 (110) Pulse Ox 96 O2 Delivery Room Air (MARTIN LUU MD) Vital Signs/I&O Capillary Refill : (JERRY MAZARIEGOS) Blood Pressure Mean: 110 Departure Communication (PCP) Patient presents the ED with flulike symptoms. Symptoms started 3:00 this morning. Denies chest pain, shortness of breath abdominal pain vomiting or diarrhea. She does not appear dehydrated. Lung sounds clear bilateral. No distress. vital signs stable. Differential diagnosis viral syndrome, strep. Exam otherwise benign. COVID influenza was ordered which was negative. She refused anything for her symptoms at this time. Potential exposure to COVID and flu. Discussed with patient recommend conservative treatment. Discussed potential early false negatives for COVID as she had exposure. Recommend recheck in 2 days. Provided work note. Recommend hydration. Alternate Tylenol ibuprofen. Mucinex, Sudafed for nasal congestion and pressure. If any worsening symptoms return back to ED for further evaluation. Follow-up your PCP in 2 to 3 days for reevaluation. (JERRY MAZARIEGOS) Impression Primary Impression: Viral syndrome Disposition: 01 HOME, SELF-CARE Condition: Stable Departure-Patient Inst. Decision time for Depature: 12:29 (JERRY MAZARIEGOS) Referrals: MISA JOHNS DO (PCP/Family) Primary Care Physician Patient Instructions: Viral Syndrome (DC) Add. Discharge Instructions: Alternate Tylenol ibuprofen. May try Mucinex or Sudafed. Recommend staying hydrated. Recommend rest. Follow-up your PCP in 2 to 3 days for reevaluation. If any worsening symptoms return back to ED All discharge instructions reviewed with patient and/or family. Voiced understanding. Work/School Note: Work Release Form Date Seen in the Emergency Department: May 07, 2023 Return to Work: May 10, 2023 ATTENDING PHYSICIAN NOTE: I was physically present as attending physician in the emergency department during the care of this patient, but I was not directly involved in the decision making or delivery of care for this patient. (MARTIN LUU MD) JERRY MAZARIEGOS May 07, 2023 12:30 MARTIN LUU MD May 07, 2023 23:14
== END 2023-05-07 12:44 | disposition home or self-care (01) ==
LOC: EDUNIT# 11:09 → ER 11:11
DX: B34.9 Viral infection, unspecified (principal); R05.9 Cough, unspecified; R09.81 Nasal congestion; R50.9 Fever, unspecified; R53.83 Other fatigue; R13.10 Dysphagia, unspecified; R51.9 Headache, unspecified; R07.0 Pain in throat; F17.210 Nicotine dependence, cigarettes, uncomplicated; Z20.822 Contact with and (suspected) exposure to COVID-19
CPT/HCPCS: 87636; 99283

== ENCOUNTER 2023-06-03 17:45 | Emergency (ER) | payer MEDICAID ==
[~2023-06-03 17:45] MED LIST changes: +ALBU18HF2 INH; +AZIT250T12 PO; +BENZ100C18 PO; -PREG75CA75 PO; +PREG75CA76 PO
[2023-06-03] MEDS ORDERED: LACTATED RINGERS 1,000 ML 1,000 ML IV ONE (18:30)
[2023-06-03 18:54] LABS: ALBUMIN 3.9 GM/DL (3.2-4.5); POTASSIUM 3.1 MMOL/L (3.6-5.0)
[2023-06-03 18:55] LABS: CALCIUM 9.1 MG/DL (8.5-10.1)
[2023-06-03 18:56] LABS: TOTAL PROTEIN 7.2 GM/DL (6.4-8.2)
[2023-06-03 18:58] LABS: BILIRUBIN,TOTAL 0.4 MG/DL (0.1-1.0)
[2023-06-03 18:59] LABS: ERYTHROCYTE SEDIMENTATION RATE 7 MM/HR (0-20)
[2023-06-03 19:00] LABS: CREATININE SERUM 0.75 MG/DL (0.60-1.30)
[2023-06-03 19:01] LABS: BASOPHILS % (AUTO) 1 % (0-10); EOSINOPHILS # (AUTO) 0.2 10^3/uL (0.0-0.3); EOSINOPHILS % (AUTO) 4 % (0-10); HEMATOCRIT 39 % (35-52); HEMOGLOBIN 13.6 g/dL (11.5-16.0); LYMPHOCYTES # (AUTO) 2.6 10^3/uL (1.0-4.0); LYMPHOCYTES % (AUTO) 50 % (12-44); MEAN CORPUSCULAR HEMOGLOBIN 32 pg (25-34); MEAN CORPUSCULAR HGB CONC 35 g/dL (32-36); MEAN CORPUSCULAR VOLUME 92 fL (80-99); MEAN PLATELET VOLUME 11.5 fL (9.0-12.2); MONOCYTES # (AUTO) 0.4 10^3/uL (0.0-1.0); MONOCYTES % (AUTO) 7 % (0-12); NEUTROPHILS % (AUTO) 38 % (42-75); PLATELET COUNT 146 10^3/uL (130-400); WHITE BLOOD COUNT 5.1 10^3/uL (4.3-11.0)
[2023-06-03 19:03] LABS: MAGNESIUM 2.1 MG/DL (1.6-2.4)
[2023-06-03] MEDS ORDERED: IOHEXOL 350 MG/ML 100 ML (OMNIPAQUE 350) VIAL IV ONE (19:15)
[2023-06-03] MEDS ORDERED: HOLD METFORMIN - RECEIVED CONTRAST 20 ML VIAL IV SCH (19:15)
[2023-06-03] MEDS ORDERED: NS 100 ML (IVPB) BAG IV ONE (19:15)
--- NOTE | 2023-06-03 19:53 | Diagnostic Imaging Report ---
INDICATION: Abdominal pain with nausea and diarrhea x1 day. TECHNIQUE: Multiple contiguous axial images were obtained through the abdomen and pelvis after administration of intravenous contrast. Auto Exposure Controls were utilized during the CT exam to meet ALARA standards for radiation dose reduction. All CT scans use one or more of the following dose optimizing techniques: automated exposure control, MA and/or KvP adjustment based on patient size and exam type or iterative reconstruction. COMPARISON: There is no previous study for comparison. The visualized portions of the lung bases are clear. There were no pleural fluid collections. There is no free intraperitoneal air. 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 There is no acute bony abnormality. The liver shows no focal lesion. Gallbladder is not distended but there is a small amount of air in the gallbladder. The spleen, adrenals, and pancreas are normal in appearance. The kidneys bilaterally are unremarkable. There is no retroperitoneal mass or adenopathy. There is no ascites or abscess. There is prominent stool throughout the colon. There is no focal bowel wall thickening, there are few uncomplicated colonic diverticula. There are a few scattered fluid-filled loops of small bowel. IMPRESSION: No abdominal mass or abnormal fluid collection. There are a few scattered fluid-filled loops of small bowel which are nonspecific, with prominent stool throughout the colon There is a small amount of air in the gallbladder lumen rather than in the gallbladder wall, this is a somewhat atypical finding but cholecystitis could not be excluded. Consider follow-up with sonography for a more complete evaluation of the gallbladder as clinically warranted. Dictated by: Dictated on workstation # [id number]
--- NOTE | 2023-06-03 19:59 | ED Abdominal Pain ---
General Chief Complaint: Abdominal/GI Problems Stated Complaint: ABD PAIN. DIARRHEA Nursing Triage Note: PT STATES STARTED HAVING NAUSEA AND DIARHHEA TODAY. STATES HAS CRAMPING RATES 11/26 Source of Information: Patient History of Present Illness Date Seen by Provider: Jun 03, 2023 Time Seen by Provider: 18:22 Initial Comments PT ARRIVES VIA POV FROM HOME PT BEGAN GETTING SICK LAST NIGHT WITH: -NAUSEA, NO VOMITING --HAS CHRONIC NAUSEA -DIARRHEA X 6--NO BLACK/BLOODY/TARRY STOOLS -MILD GENERALIZED ABDOMINAL CRAMPING NO FEVER NO URINARY SYMPTOMS AND IS VOIDING A NORMAL AMOUNT URI SYMPTOMS FOR A FEW WEEKS--COUGH/CONGESTION/RUNNY NOSE SHE HAS BEEN PRESCRIBED: BY DIFFERENT PROVIDERS -ZITHROMAX 05/01/23 -ZITHROMAX, TESSALON, ALBUTEROL 05/11 -CEFDINIR, PREDNISONE, BROMFED DM 05/13/23 TOOK ZOFRAN AT 0800 AND 1420--NO RELIEF TOOK IMMODIUM EARLIER TODAY--NO RELIEF PT HAS HISTORY OF CHRONIC PANCREATITIS WITH PANCREATIC STENTS, SHE HAS HTN, NIDDM SHE HAS HAD C-SECTIONS X 2, BTL, HYST/BSO. SMOKES 1 PDD, DENIES ETOH USE OR DRUG USE PT HAS BEEN ON HALFWAY MORPHINE, OXYCODONE AND LORAZEPAM IN THE PAST--SHE IS NOW ON SUBOXONE NO KNOWN SICK CONTACTS OR SUSPICIOUS FOODS. SHE HAS HAD COVID VACCINE X 2, NO FLU VACCINE PCP: ARIANNA CUMMINGS Allergies and Home Medications Allergies Coded Allergies: JAMESANo Known Allergies (Verified Allergy, Unknown, 11/11/05) Patient Home Medication List Home Medication List Reviewed: Yes Albuterol Sulfate (Ventolin Hfa) 1 Puff Puff, 2 PUFF IH Q4H PRN for SHORTNESS OF BREATH, (Reported) Entered as Reported by: SAULO ESTEVES on 11/21/17 1524 Albuterol Sulfate (Ventolin Hfa) 90 Mcg Hfa.aer.ad, 18 GM INH Q4H Prescribed by: RALPH DEJESUS on 05/11/23 1053 Atorvastatin Calcium (Atorvastatin Calcium) 40 Mg Tablet, 40 MG PO HS, (Reported) Entered as Reported by: MALIA PHILIPPE on 10/11/21 1625 Azithromycin (Azithromycin) 250 Mg Tablet, 250 MG PO UD Prescribed by: RALPH DEJESUS on 05/11/23 105 Benzonatate (Tessalon Perles) 100 Mg Capsule, 100 MG PO TID PRN for COUGH Prescribed by: RALPH DEJESUS on 05/11/23 105 Budesonide (Budesonide) 0.5 Mg/2 Ml Ampul.neb, 0.5 MG IH BID PRN for SHORTNESS OF BREATH, (Reported) Entered as Reported by: MALIA PHILIPPE on 10/11/21 161 Buprenorphine HCl/Naloxone HCl (Suboxone 8 mg-2 mg Sl Film) 1 Each Film, 1 EACH SL BID, (Reported) Entered as Reported by: MALIA PHILIPPE on 10/11/21 161 Celecoxib (Celebrex) 200 Mg Capsule, 200 MG PO BID, (Reported) Entered as Reported by: MALIA PHILIPPE on 10/11/211609 Cetirizine HCl (Cetirizine HCl) 10 Mg Tablet, 10 MG PO DAILY PRN for ALLERGY SYMPTOMS, (Reported) Entered as Reported by: SAULO ESTEVES on 11/21/17 152 Cholecalciferol (Vitamin D3) (Vitamin D3) 50 Mcg Capsule, 50 MCG PO DAILY, (Reported) Entered as Reported by: MALIA PHILIPPE on 10/11/211609 Dicyclomine HCl (Dicyclomine HCl) 20 Mg Tablet, 20 MG PO ACHS, (Reported) Entered as Reported by: MALIA PHILIPPE on 10/11/211609 Duloxetine HCl (Duloxetine HCl) 60 Mg Capsule.dr, 60 MG PO DAILY, (Reported) Entered as Reported by: MALIA PHILIPPE on 10/11/21 162 Estradiol (Estrace Tablet) 2 Mg Tablet, 2 MG PO DAILY, (Reported) Entered as Reported by: MALIA PHILIPPE on 10/11/211609 Fluticasone Propionate (Fluticasone Propionate) 16 Gm [place].susp, 1-2 SPRAY NSEACH DAILY PRN for CONGESTION, (Reported) Entered as Reported by: SAULO ESTEVES on 11/21/17 152 Fluticasone/Vilanterol (Breo Ellipta 100-25 Mcg INH) 1 Each Blst.w.dev, 1 EACH IH DAILY, (Reported) Entered as Reported by: MALIA PHILIPPE on 10/11/211609 Furosemide (Furosemide) 40 Mg Tablet, 40 MG PO 0700,1300, (Reported) Entered as Reported by: MALIA PHILIPPE on 10/11/211609 Ibuprofen (Ibuprofen) 800 Mg Tablet, 800 MG PO Q8H PRN for PAIN-MILD, (Reported) Entered as Reported by: MALIA PHILIPPE on 10/11/211609 Lisinopril/Hydrochlorothiazide (Lisinopril-Hctz 20-12.5 mg Tab) 1 Each Tablet, 1 EACH PO DAILY, (Reported) Entered as Reported by: MALIA PHILIPPE on 10/11/21 161 Metformin HCl (Metformin HCl) 500 Mg Tablet, 500 MG PO BID Prescribed by: CHERYLE SOOD on 10/12/21 103 Methotrexate Sodium (Methotrexate) 2.5 Mg Tablet, 17.5 MG PO SUN, (Reported) Entered as Reported by: MALIA PHILIPPE on 10/11/211609 Methylphenidate HCl (Methylphenidate HCl) 10 Mg Tablet, 10 MG PO 0700,1300, (Reported) Entered as Reported by: MALIA PHILIPPE on 10/11/211609 Metoclopramide HCl (Reglan) 10 Mg Tablet, 10 MG PO Q6H Prescribed by: SRI LENNON on 06/03/232053 Nitrofurantoin Monohyd/M-Cryst (Macrobid 100 mg Capsule) 100 Mg Capsule, 1 TAB PO BID Prescribed by: SRI LENNON on 06/03/232053 Ondansetron (Ondansetron Odt) 8 Mg Tab.rapdis, 8 MG PO Q6H Prescribed by: SRI ELNNON on 06/03/232053 Pantoprazole Sodium (Pantoprazole Sodium) 40 Mg Tablet.dr, 40 MG PO DAILY, (Reported) Entered as Reported by: SAULO ESTEVES on 11/21/17 152 Polyethylene Glycol 3350 (Miralax) 17 Gm Powd.pack, 17 GM PO DAILY PRN for CONSTIPATION-2ND LINE, (Reported) Entered as Reported by: SAULO ESTEVES on 11/21/171523 Potassium Chloride (Potassium Chloride) 20 Meq Tablet.er, 20 MEQ PO DAILY, (Reported) Entered as Reported by: SAULO ESTEVES on 11/21/171523 Pregabalin (Pregabalin) 75 Mg Capsule, 75 MG PO TID, (Reported) Entered as Reported by: MALIA PHILIPPE on 10/11/21 1610 Zolpidem Tartrate (Ambien) 10 Mg Tablet, 10 MG PO HS, (Reported) Entered as Reported by: MALIA PHILIPPE on 10/11/21 1610 Review of Systems Review of Systems Constitutional: no symptoms reported EENTM: See HPI Respiratory: See HPI Cardiovascular: No Symptoms Reported Gastrointestinal: See HPI Genitourinary: No Symptoms Reported Musculoskeletal: no symptoms reported Skin: no symptoms reported Psychiatric/Neurological: No Symptoms Reported Endocrine: No Symptoms Reported Hematologic/Lymphatic: No Symptoms Reported Past Kwzmolf-Btpjbw-Oxozir Hx Patient Social History Tobacco Use?: Yes Tobacco type used: Cigarettes Smoking Status: Current Everyday Smoker Use of E-Cig and/or Vaping dev: No Substance use?: Yes Substance type: Opiates/Opioids Alcohol Use?: No Pt feels they are or have been: No Immunizations Up To Date Tetanus Booster (TDap): Unknown First/Initial COVID19 Vaccinat: RECEIVED, UNK WHEN Second COVID19 Vaccination Holden: RECEIVED, UNK WHEN Third COVID19 Vaccination Date: RECEIVED, UNK WHEN Seasonal Allergies Seasonal Allergies: Yes Past Medical History Surgery/Hospitalization HX: C SECTION HTN Surgeries: Yes (C/S x2,PORT,PANCREAS/LIVER STENT x6,OVARIAN CYSTECTOMY, RT CTR;BTL;HYST/BSO) Section, Hysterectomy, Oophorectomy, Pancreatic, Tubal Ligation Respiratory: Yes Asthma Cardiac: Yes Hypertension Neurological: No Reproductive Disorders: Yes Female Reproductive Disorders: Menstrual Problems, 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 Physical Exam Vital Signs Vital Signs - First Documented 06/03/23 06/03/23 18:10 21:00 Temp 36.9 Pulse 81 Resp 18 B/P (MAP) 144/90 (108) Pulse Ox 98 O2 Delivery Room Air Capillary Refill : Less Than 3 Seconds Height/Weight/BMI Height: 5'2.00" Weight: 129lbs. 0.0oz. 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0-12.2 fL Immature Granulocyte % (Auto) 0 % Neutrophils (%) (Auto) 38 L 42-75 % Lymphocytes (%) (Auto) 50 H 12-44 % Monocytes (%) (Auto) 7 0-12 % Eosinophils (%) (Auto) 4 0-10 % Basophils (%) (Auto) 1 0-10 % Neutrophils # (Auto) 2.0 1.8-7.8 10^3/uL Lymphocytes # (Auto) 2.6 1.0-4.0 10^3/uL Monocytes # (Auto) 0.4 0.0-1.0 10^3/uL Eosinophils # (Auto) 0.2 0.0-0.3 10^3/uL Basophils # (Auto) 0.0 0.0-0.1 10^3/uL Immature Granulocyte # (Auto) 0.0 0.0-0.1 10^3/uL Erythrocyte Sedimentation Rate 7 0-20 MM/HR Sodium Level 139 135-145 MMOL/L Potassium Level 3.1 L 3.6-5.0 MMOL/L Chloride Level 107 98-107 MMOL/L Carbon Dioxide Level 23 21-32 MMOL/L Anion Gap 9 5-14 MMOL/L Blood Urea Nitrogen 9 7-18 MG/DL Creatinine 0.75 0.60-1.30 MG/DL Estimat Glomerular Filtration Rate 99 BUN/Creatinine Ratio 12 Glucose Level 99 70-105 MG/DL Calcium Level 9.1 8.5-10.1 MG/DL Corrected Calcium 9.2 8.5-10.1 MG/DL Magnesium Level 2.1 1.6-2.4 MG/DL Total Bilirubin 0.4 0.1-1.0 MG/DL Aspartate Amino Transf (AST/SGOT) 42 H 5-34 U/L Alanine Aminotransferase (ALT/SGPT) 49 0-55 U/L Alkaline Phosphatase 85 40-136 U/L C-Reactive Protein High Sensitivity 0.01 0.00-0.50 MG/DL Total Protein 7.2 6.4-8.2 GM/DL Albumin 3.9 3.2-4.5 GM/DL Amylase Level 57 25-125 U/L Lipase 36 8-78 U/L Influenza Type A (RT-PCR) Not Detected Not Detecte Influenza Type B (RT-PCR) Not Detected Not Detecte SARS-CoV-2 RNA (RT-PCR) Not Detected Not Detecte Urine Color YELLOW Urine Clarity CLEAR Urine pH 7.0 5-9 Urine Specific [place] 1.010 L 1.016-1.022 Urine Protein NEGATIVE NEGATIVE Urine Glucose (UA) NEGATIVE NEGATIVE Urine Ketones NEGATIVE NEGATIVE Urine Nitrite NEGATIVE NEGATIVE Urine Bilirubin NEGATIVE NEGATIVE Urine Urobilinogen 0.2 < = 1.0 MG/DL Urine Leukocyte Esterase 1+ H NEGATIVE Urine RBC (Auto) TRACE H NEGATIVE Urine RBC 0-2 /HPF Urine WBC 5-10 H /HPF Urine Squamous Epithelial Cells 10-25 H /HPF Urine Crystals PRESENT H /LPF Urine Amorphous Sediment RARE JEREMY PHOSPHATE H /LPF Urine Bacteria TRACE /HPF Urine Casts NONE /LPF Urine Mucus NEGATIVE /LPF Urine Culture Indicated YES Urine Opiates Screen NEGATIVE NEGATIVE Urine Oxycodone Screen NEGATIVE NEGATIVE Urine Methadone Screen NEGATIVE NEGATIVE Urine Propoxyphene Screen NEGATIVE NEGATIVE Urine Barbiturates Screen NEGATIVE NEGATIVE Ur Tricyclic Antidepressants Screen NEGATIVE NEGATIVE Urine Phencyclidine Screen NEGATIVE NEGATIVE Urine Amphetamines Screen NEGATIVE NEGATIVE Urine Methamphetamines Screen NEGATIVE NEGATIVE Urine Benzodiazepines Screen NEGATIVE NEGATIVE Urine Cocaine Screen NEGATIVE NEGATIVE Urine Cannabinoids Screen NEGATIVE NEGATIVE My Orders Orders - SRI LENNON DO Ed Iv/Invasive Line Start (06/03/23 18:24) Monitor-Rhythm Ecg Trace Only (06/03/23 18:24) Amylase (06/03/23 18:24) Cbc And Automated Diff (06/03/23 18:24) Comprehensive Metabolic Panel (06/03/23 18:24) Hs C Reactive Protein (06/03/23 18:24) Lipase (06/03/23 18:24) Magnesium (06/03/23 18:24) Ua Culture If Indicated (06/03/23 18:24) Erythrocyte Sedimentation Rate (06/03/23 18:24) Ed Iv/Invasive Line Start (06/03/23 18:24) Lactated Ringers 1,000 Ml (Lactated Ring (06/03/23 18:30) Covid 19 Inhouse Test (06/03/23 18:52) Influenza A And B By Pcr (06/03/23 18:52) Ct Abdomen/Pelvis W (06/03/23 19:05) Iohexol Injection (Omnipaque 350 Mg/Ml 1 (06/03/23 19:15) Received Contrast (Hold Metformin- Contr (06/03/23 19:15) Ns (Ivpb) 100 Ml (Sodium Chloride 0.9% 1 (06/03/23 19:15) Drug Screen Stat (Urine) (06/03/23 19:46) Ondansetron Injection (Ondansetron Inj (06/03/23 21:00) Urine Culture (06/03/23 20:12) Medications Given in ED Current Medications Medications Dose Ordered Sig/Melissa Route Start Time Stop Time Status Last Admin Dose Admin Iohexol 100 ml ONCE ONCE IV 06/03/23 19:15 06/03/23 19:16 DC 06/03/23 19:18 62 ML Lactated Ringer's 1,000 ml @ 0 mls/hr Q0M ONCE IV 06/03/23 18:30 06/03/23 18:31 DC 06/03/23 18:33 0 MLS/HR Ondansetron HCl 8 mg ONCE ONCE IVP 06/03/23 21:00 06/03/23 21:01 DC 06/03/23 20:50 8 MG Sodium Chloride 100 ml ONCE ONCE IV 06/03/23 19:15 06/03/23 19:16 DC 06/03/23 19:18 80 ML Vital Signs/I&O 06/03/23 06/03/23 18:10 21:00 Temp 36.9 Pulse 81 76 Resp 18 B/P (MAP) 144/90 (108) 145/96 Pulse Ox 98 97 O2 Delivery Room Air Blood Pressure Mean: 108 Progress Progress Note : Progress Note VITALS ON ARRIVAL: TEMP 36.9=98.4, HR 81, RR 18, BP 144/90, O2 SAT 98% ON ROOM AIR GIVEN: -IV FLUIDS -ZOFRAN LABS: -CBC NORMAL -CMP K 3.1, OTHERWISE NORMAL -AMYLASE/LIPASE NORMAL -UA WITH 1+ LEUKOCYTES, 5-10 WBC, TRACE BACTERIA -UDS NEGATIVE -COVID/FLU NEGATIVE CT ABDOMEN/PELVIS UNREMARKABLE NO DIARRHEA DURING ER STAY, NAUSEA RESOLVED DISCUSSED TEST RESULTS, ANTICIPATED COURSE, SYMPTOMATIC TREATMENT, MEDICATIONS, NEED FOR FOLLOW UP AND RETURN PRECAUTIONS REVIEWED PRIOR RECORDS INCLUDING ER VISITS, ADMITS/H&PS/CONSULTS/DISCHARGE SUMMARIES, TESTS/PROCEDURES Diagnostic Imaging Comments CT ABDOMEN/PELVIS--PER RADIOLOGIST REPORT AT 1959 COMPARISON: There is no previous study for comparison. The visualized portions of the lung bases are clear. There were no pleural fluid collections. There is no free intraperitoneal air. 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 There is no acute bony abnormality. The liver shows no focal lesion. Gallbladder is not distended but there is a small amount of air in the gallbladder. The spleen, adrenals, and pancreas are normal in appearance. The kidneys bilaterally are unremarkable. There is no retroperitoneal mass or adenopathy. There is no ascites or abscess. There is prominent stool throughout the colon. There is no focal bowel wall thickening, there are few uncomplicated colonic diverticula. There are a few scattered fluid-filled loops of small bowel. IMPRESSION: No abdominal mass or abnormal fluid collection. There are a few scattered fluid-filled loops of small bowel which are nonspecific, with prominent stool throughout the colon There is a small amount of air in the gallbladder lumen rather than in the gallbladder wall, this is a somewhat atypical finding but cholecystitis could not be excluded. Consider follow-up with sonography for a more complete evaluation of the gallbladder as clinically warranted. Reviewed: Reviewed by Me Departure Impression Primary Impression: Diarrhea Additional Impressions: Abdominal pain Nausea UTI (urinary tract infection) Disposition: HOME, SELF-CARE Condition: Stable Departure-Patient Inst. Decision time for Depature: 20:53 Referrals: MISA JOHNS DO (PCP/Family) Primary Care Physician Patient Instructions: [id number], Probiotics, Urinary Tract Infection, Adult ED Add. Discharge Instructions: CLEAR LIQUIDS--WATER, BROTH, JELLO, GATORADE BRATS DIET--BANANAS, RICE, APPLESAUCE, TOAST, SALTINES TYLENOL AND MOTRIN FOR PAIN OR FEVER FOLLOW UP WITH YOUR DR THIS WEEK FOR FURTHER CARE All discharge instructions reviewed with patient and/or family. Voiced understanding. Scripts Metoclopramide HCl (Reglan) 10 Mg Tablet 10 MG PO Q6H for Nausea/Vomiting, #10 TAB Prov: SRI LENNON DO 06/03/23 Ondansetron (Ondansetron Odt) 8 Mg Tab.rapdis 8 MG PO Q6H, #10 TAB Prov: SRI LENNON DO 06/03/23 Nitrofurantoin Monohyd/M-Cryst (Macrobid 100 mg Capsule) 100 Mg Capsule 1 TAB PO BID, #20 CAP Prov: SRI LENNON DO 06/03/23 SRI LENNON DO Jun 03, 2023 19:59
[2023-06-03 20:42] LABS: AMPHETAMINE SCREEN, URINE NEGATIVE (NEGATIVE); BARBITURATE SCREEN URINE NEGATIVE (NEGATIVE); CANNABINOID SCREEN, URINE NEGATIVE (NEGATIVE); COCAINE SCREEN URINE NEGATIVE (NEGATIVE); METHADONE STAT NEGATIVE (NEGATIVE); OPIATE SCREEN URINE NEGATIVE (NEGATIVE); OXYCODONE STAT NEGATIVE (NEGATIVE); PROPOXYPHENE STAT NEGATIVE (NEGATIVE); TRICYCLIC ANTIDEPRESSANTS SCRE NEGATIVE (NEGATIVE)
[2023-06-03 20:47] LABS: BILIRUBIN,URINE NEGATIVE (NEGATIVE); CLARITY,URINE CLEAR; COLOR,URINE YELLOW; GLUCOSE, URINE (UA) NEGATIVE (NEGATIVE); KETONES,URINE NEGATIVE (NEGATIVE); LEUKOCYTE ESTERASE ,URINE 1+ (NEGATIVE); NITRITE,URINE NEGATIVE (NEGATIVE); PROTEIN,URINE NEGATIVE (NEGATIVE); RBC,URINE 0-2 /HPF
[2023-06-03 20:48] LABS: AMORPHOUS SEDIMENT,UR RARE AMOR PHOSPHATE /LPF; BACTERIA,URINE TRACE /HPF
[2023-06-03] MEDS ORDERED: NITR-65 PO (20:54)
[2023-06-03] MEDS ORDERED: ONDA8TAB13 PO (20:54)
[2023-06-03] MEDS ORDERED: METO-310 PO (20:54)
[2023-06-03 21:00] VITALS: BP 145/96
[2023-06-03] MEDS ORDERED: ONDANSETRON INJECTION 4 MG/2 ML (SDV) IVP ONE (21:00)
== END 2023-06-03 21:01 | disposition home or self-care (01) ==
LOC: EDUNIT# 17:45 → ER 17:46
DX: N39.0 Urinary tract infection, site not specified (principal); R19.7 Diarrhea, unspecified; R11.0 Nausea; F17.210 Nicotine dependence, cigarettes, uncomplicated; Z20.822 Contact with and (suspected) exposure to COVID-19
CPT/HCPCS: 36415; 74177; 80053; 80306; 81000; 82150; 83690; 83735; 85025; 85652; 86141; 87088; 87636; 93041